=== PATIENT | female | born 1995 | race Caucasian/White ===

== ENCOUNTER 2016-06-12 11:45 | Emergency (ER) | payer OTHER ==
[~2016-06-12 11:45] MED LIST: AMOX875T PO; CEPH500C PO
[2016-06-12 12:07] VITALS: BP 118/77; PULSE 107
[2016-06-12 12:09] VITALS: RESP 18; TEMP 97.7
[2016-06-12] MEDS ORDERED: ACETAMINOPHEN 500 MG CPLT PO ONE (13:15)
--- NOTE | 2016-06-12 13:15 | PD ---
HPI Chief Complaint lower abdominal cramping Date Seen: Jun 12, 2016 (Kehinde Laughlin MD R2) Travel History International Travel<30 Days: No Contact w/Intl Traveler<30Days: No Known Affected Area: No (Kehinde Laughlin MD R2) History of Present Illness HPI Ms. Carmona is a 21 yo G1 at an estimated 21 6/7 weeks (DASHAWN 10/17/2016) who presents with complaint of lower abdominal pain/pressure and dysuria. Patient states that her lower abdominal pain began this morning on awakening and rolling over in bed. She states that it has gotten worse throughout the day. Patient reports that dysuria has been persistent. Patient states that she was recently treated for UTI ~1 week ago; patient was tried on multiple antibiotics but was unable to take them due to her not being able to tolerate pills. Patient states that she took most of an Amoxicillin prescription but did not finish it. Patient states that she feels hot but does not think she has a fever. Patient reports mild nausea but no vomiting. Patient reports normal bowel movements. No headaches, chest pain, or shortness of breath. Patient denies vaginal bleeding or vaginal discharge. Patient reports she is feeling the baby move but less over the past several days. Patient denies known complications on labs or initial ultrasound. Per EMR, US with grossly consistent DASHAWN. Para: 0 : 1 (Kehinde Laughlin MD R2) History Past Medical History Narrative Medical Recent UTI- treated partially with Amoxicillin (Kehinde Laughlin MD R2) Obstetric History Obstetric History G1 (Kehinde Laughlin MD R2) Past Surgical History Narrative Surgical Unspecified renal/ UT surgery at 4 yrs of age (Kehinde Laughlin MD R2) Family History Narrative Family History Breast cancer (Kehinde Laughlin MD R2) Social History Alcohol Use: No Tobacco Use: No Substance Abuse: No (Kehinde Laughlin MD R2) Allergies-Medications (Allergen,Severity, Reaction): Coded Allergies: No Known Allergies (Verified , 05/03/16) Home Meds Active Scripts Nitrofurantoin Monohydrate Macrocrystals (Macrobid)100 Mg [id number] Mg PO BID #14 CAP Ref 0 Prov:Kehinde Laughlin MD R2 06/12/16 Discontinued Reported Medications Cephalexin 500 Mg Ovk206 Mg PO Q8H Ref 0 05/03/16 Discontinued Scripts Amoxicillin 875 Mg Ufr297 Mg PO BID #10 TAB Ref 0 Prov:Elian Siegel MD 05/30/16 Review of Systems General / Constitutional: No: Fever, Chills Eyes: No: Blurred Vision HENT: No: Headaches Cardiovascular: No: Chest Pain or Discomfort Respiratory: No: Short of Breath Gastrointestinal: Nausea (mild) Genitourinary: Dysuria, No: Urgency (Kehinde Laughlin MD R2) Physical Exam Vital Signs Date Time Temp Pulse Resp B/P Pulse Ox O2 Delivery O2 Flow Rate FiO2 06/12/16 12:09 97.7 18 06/12/16 12:07 107 118/77 Narrative GENERAL: Well-nourished, well-developed patient. SKIN: Warm and dry. HEAD: Normocephalic and atraumatic. EYES: No scleral icterus. No injection or drainage. ENT: No nasal drainage noted. Mucous membranes pink. Airway patent. NECK: No thyromegaly or lymphadenopathy CARDIOVASCULAR: Regular rate and rhythm without murmurs. Normal perfusion grossly RESPIRATORY: CTAB, normal rate ABDOMEN/GI: Abdomen soft, non-tender, bowel sounds present, no rebound, no guarding Gravid EXTREMITIES: No cyanosis or edema. NEUROLOGICAL: Awake and alert. Motor and sensory function grossly within normal limits. FHT's: 150 bpm (Kehinde Laughlin MD R2) Data Data Vital Signs Reviewed: Yes Orders Vital Signs (Adult) .ON ADMISSION (06/12/16 12:02) ^ Labor Status (06/12/16 12:02) Urinalysis - C+S If Indicated (06/12/16 12:02) ^ Hydration (06/12/16 12:02) (Kehinde Laughlin MD R2) MDM Medical Record Reviewed: Yes Narrative Course / MDM 21 yo G1 at an estimated 21 6/7 weeks (DASHAWN 10/17/2016) -Dysuria, lower abdominal pain -Recent partially treated UTI (records unavailable) -FHT 150bpm Plan: -Will encourage oral fluids -Tylenol for pain control -Will check Urinalysis Interval history: Urinalysis resultedmoderate occult blood, innumerable RBC, 14 BBC, small leuk esterase, few bacteria, 30 protein Patient reports continued abdominal pain despite Tylenol Updated plan: Discussed with patient that urinalysis results are suggestive of possible urinary tract/bladder infection versus small ureteral stone. Patient counseled to drink abundant fluids at home. We will prescribe Macrobid 7 days to treat suspected urinary tract infection. Patient counseled [facility] with [facility]-3 days and return to OB ED with any worsening symptoms such as fever/chills, worsening pain, etc. Patient was offered Zofran prescription for nausea while taking medications but declined due to potential risk (Kehinde Laughlin MD R2) Diagnosis Diagnosis: Primary Impression: Urinary tract infection Additional Impressions: Abdominal pain affecting Hematuria Disposition: 01 DISCHARGE HOME Condition: Stable Scripts Nitrofurantoin Monohydrate Macrocrystals (Macrobid)100 Mg Jhw661 Mg PO BID #14 CAP Ref 0 Prov:Kehinde Laughlin MD R2 06/12/16 Patient Instructions: General Instructions, Abdominal Pain in (ED), Urinary Tract Infection in (ED) Attestation I have discussed this patients management with resident team and agree with plan. (Rufina Boateng MD) Kehinde Laughlin MD R2 Jun 12, 2016 13:15 Rufina Boateng MD Jun 12, 2016 18:12
[2016-06-12 13:54] LABS: BACTERIA, URINE FEW /hpf; BLOOD, URINE MOD (NEG); GLUCOSE,URINE 70 mg/dL (NEG); KETONE, URINE NEG (NEG); NITRITE,URINE NEG (NEG); SQUAMOUS EPITHELIAL CELL URINE 23 /hpf (0-5); TRANSITIONAL EPI CELLS, URINE <1 /hpf; URINE COLOR YELLOW (YELLW/STRAW)
[2016-06-12 13:55] LABS: COMMENT (UR) CULTURE INDICATED; CULTURE IF INDICATED CULTURE INDICATED
[2016-06-12] MEDS ORDERED: MACR100C2 PO (14:42)
[2016-06-27] MEDS ORDERED: TERC0.4C2 VAGINAL (13:17)
[2016-07-11] MEDS ORDERED: PREN1CHW7 PO (10:49)
[2016-08-08] MEDS ORDERED: PREN1CHW7 PO (09:25)
== END 2016-06-12 15:04 | disposition home or self-care (01) ==
LOC: HOBED 11:45
DX: O23.42 Unspecified infection of urinary tract in pregnancy, second trimester (principal); R31.9 Hematuria, unspecified; R10.30 Lower abdominal pain, unspecified; Z3A.21 21 weeks gestation of pregnancy
CPT/HCPCS: 81001; 87086; 99284

== ENCOUNTER 2016-09-24 19:28 | Emergency (ER) | payer OTHER ==
[~2016-09-24 19:28] MED LIST changes: +AMOX250S2 PO; -AMOX875T PO; -CEPH500C PO; +PREN1CHW7 PO
--- NOTE | 2016-09-24 20:48 | PD ---
HPI Chief Complaint Contractions Date Seen: Sep 24, 2016 Travel History International Travel<30 Days: No Contact w/Intl Traveler<30Days: No Known Affected Area: No History of Present Illness HPI Patient is 21-year-old white female at 36 weeks who [facility] to [facility] She presents clinically contraction pain over the last few hours. And she is jack regularly at this point, heart rate tracing is reactive Para: 0 : 1 History Social History Alcohol Use: No Tobacco Use: No Substance Abuse: No Allergies-Medications (Allergen,Severity, Reaction): Coded Allergies: No Known Allergies (Verified , 09/20/16) Home Meds Active Scripts Amoxicillin Liq 250 Mg/5 Ml [id number] Mg PO TID #15 ML Ref 0 Prov:Elian Siegel MD 09/20/16 Vit W/ Ferric Phospha (Vitafol Gummies 3.33-0.333-34.8 mg)1 Chw Chw3 Tab PO DAILY #90 BOTTLE Ref 11 Prov:Raquel Tadeo 08/08/16 W/O Vit A W/ Fe Carbo Pack (Citranatal Assure Pack)35-1 & 300 Mg Pack Sample #3 Prov:Elian Siegel MD 05/03/16 Review of Systems General / Constitutional: No: Fever, Weight Gain, Chills, Other Eyes: No: Diploplia, Blurred Vision, Visual changes, Pain, Photophobia HENT: No: Headaches, Vertigo, Lightheadedness Cardiovascular: No: Irregular Rhythm, Chest Pain or Discomfort, Palpitations, Tachycardia, Syncope, Varicosities, Edema, Cyanosis Respiratory: No: Cough, Short of Breath, Other Gastrointestinal: Abdominal Pain, No: Nausea, Vomiting, Diarrhea Genitourinary: No: Decreased Urinary Output, Oliguria Musculoskeletal: No: Limited ROM, Weakness, Cramping, Edema, Pain Skin: No Rash, No Itching, No Dryness, No Lumps, No Change in Pigmentation, No Change in Nails, No Alopecia, No Lesions Neurologic: No: Weakness, Dizziness, Syncope, Focal Abnormalities, Coordination Problem, Headache, Slurred Speech, Seizures Psychiatric: No: Depression, Suicidal Ideations, Homicidal Ideation Endocrine: No: Heat Intolerance, Cold Intolerance, Polydipsia, Polyuria, Other Physical Exam Narrative GENERAL: Well-nourished, well-developed patient. SKIN: Warm and dry. HEAD: Normocephalic and atraumatic. EYES: No scleral icterus. No injection or drainage. ENT: No nasal drainage noted. Mucous membranes pink. Airway patent. NECK: Supple, trachea midline. No JVD. CARDIOVASCULAR: Regular rate and rhythm without murmurs, gallops, or rubs. RESPIRATORY: Breath sounds equal bilaterally. No accessory muscle use. BREASTS: Bilateral exam showed no masses , no retractions, no nipple discharge. ABDOMEN/GI: Abdomen soft, non-tender, bowel sounds present, no rebound, no guarding Gravid to [-36] weeks size Fundal Height: [36-] GENITOURINARY: External Genitalia: intact and normal in appearance BUS glands: [-] Cervix: [-closed] Dilatation: [closed-] Effacement: [-thick] Station: [-3] Presentation: [vtx-] Membranes: [intact ] Uterine Contractions: [reg-] FHT's: Category: [-1] Baseline: [133-] Reactive: [yes-] Variability: [-mod] Decels: [none-] EXTREMITIES: No cyanosis or edema. BACK: Nontender without obvious deformity. No CVA tenderness. NEUROLOGICAL: Awake and alert. Motor and sensory grossly within normal limits. Five out of 5 muscle strength in all muscle groups. Normal speech. Data Data Orders Urinalysis showed 3+ blood 2+ protein large leukocyte esterase and sample sent for culture Urinalysis - C+S If Indicated (09/24/16 20:17) MDM Interpretation(s) Patient is 21-year-old white female at 36 weeks presents clinically contractions, she is jack regularly. Cervix is closed and high. Heart rate tracing is reactive and contractions noted on the monitor. Urinalysis done dipstick on the floor year showing large leukocyte esterase 3+ blood 2+ protein---UTI --will give liter of IV fluid 1 dose of gentamicin IV 100 mg and orally Monurol powder in liquid a one-time dose. She is to return for worsening symptoms follow-up with her OB provider Plan False labor UTI and dehydration plan the IV fluid IV gentamicin oral Monurol, bedrest increase oral fluids Tylenol as needed heating pad or hot bath. Follow- up with her OB provider Diagnosis Diagnosis: Primary Impression: False labor before 37 completed weeks of gestation Additional Impression: UTI (urinary tract infection) in in third trimester Disposition: 01 DISCHARGE HOME Condition: Stable Scripts Fosfomycin Packet (Monurol Packet)3 Gm Powderpack3 Gm PO ONCE #1 GM Prov:Pk Youngblood II, MD 09/24/16 Pk Youngblood II, MD Sep 24, 2016 20:48
[2016-09-24] MEDS ORDERED: MONUPAK PO (20:51)
[2016-09-24] MEDS ORDERED: GENTAMICIN INJ 100 MG in SODIUM CHLORIDE 0.9% INJ 100 ML IV ONE (21:00)
[2016-09-24 21:40] LABS: BACTERIA, URINE MANY /hpf; BLOOD, URINE MOD (NEG); COMMENT (UR) CULTURE INDICATED; CULTURE IF INDICATED CULTURE INDICATED; GLUCOSE,URINE NEG (NEG); KETONE, URINE NEG (NEG); MUCUS URINE FEW /lpf (OCC); NITRITE,URINE NEG (NEG); PH, URINE 7.5 (5.0-8.5); SQUAMOUS EPITHELIAL CELL URINE 15 /hpf (0-5); TRANSITIONAL EPI CELLS, URINE 1 /hpf; URINE COLOR YELLOW (YELLW/STRAW)
== END 2016-09-24 20:45 | disposition home or self-care (01) ==
LOC: HOBED 19:28
DX: O47.03 False labor before 37 completed weeks of gestation, third trimester (principal); O23.43 Unspecified infection of urinary tract in pregnancy, third trimester; E86.0 Dehydration; Z3A.36 36 weeks gestation of pregnancy
CPT/HCPCS: 59025; 81001; 87086; 96374; 99284; J1580

== ENCOUNTER 2016-10-17 22:58 | Emergency (ER) | payer OTHER ==
[~2016-10-17 22:58] MED LIST changes: -AMOX250S2 PO
--- NOTE | 2016-10-17 23:31 | PD ---
HPI Chief Complaint contractions/abdominal pain Date Seen: Oct 17, 2016 Travel History International Travel<30 Days: No Contact w/Intl Traveler<30Days: No History of Present Illness HPI Ms. Carmona is a 21 yo G1 patient of [facility] at 40 weeks GA (DASHAWN 10/17/2016 ) who presents with abdominal pain/contractions. Ms. Carmona reports she began having abdominal pain approximately 7 PM this evening; patient states he is stronger than that which she has periods. Patient unsure of intervals between pain, stating that it is predominantly constant nature. Patient does not report any rupture of membranes or vaginal bleeding. Patient states it is felt less movement since onset of pain but is felt normal movement until pain has started. Patient does not report chest pain, shortness of breath, nausea/vomiting, fever, or dysuria. Patient reports increased lower extremity swelling for the past several weeks. Patient reports benign history with exception of some proteinuria but normal blood pressures. Patient reports she is GBS negative. Patient reports normal prior US. : 1 History Past Medical History Medical History: Denies Significant Hx Obstetric History Obstetric History G1 Patient reports some proteinuria during with normal blood pressures Past Surgical History Narrative Surgical Childhood renal surgery at age 31 Surgical History: No Previous Surgery Family History Family History: Negative Social History Alcohol Use: No Tobacco Use: No Substance Abuse: No Allergies-Medications (Allergen,Severity, Reaction): Coded Allergies: No Known Allergies (Verified , 10/10/16) Home Meds Active Scripts Vit W/ Ferric Phospha (Vitafol Gummies 3.33-0.333-34.8 mg)1 Chw Chw3 Tab PO DAILY #90 BOTTLE Ref 11 Prov:Raquel Tadeo 08/08/16 W/O Vit A W/ Fe Carbo Pack (Citranatal Assure Pack)35-1 & 300 Mg Pack Sample #3 Prov:Elian Siegel MD 05/03/16 Review of Systems General / Constitutional: No: Fever, Weight Gain Eyes: No: Blurred Vision HENT: Headaches (chronic, patient describes as migraines) Cardiovascular: No: Chest Pain or Discomfort Respiratory: Short of Breath (with abdominal pain; mild) Gastrointestinal: Abdominal Pain, No: Vomiting Genitourinary: No: Urgency, Dysuria Skin: No Rash Psychiatric: No: Anxiety, Depression Physical Exam HR 107 BP 143/87 RR 18 Narrative GENERAL: Well-nourished, well-developed patient. SKIN: Warm and dry. HEAD: Normocephalic and atraumatic. EYES: No scleral icterus. No injection or drainage. ENT: No nasal drainage noted. Mucous membranes pink. Airway patent. NECK: Supple, trachea midline. No JVD. CARDIOVASCULAR: Regular rate and rhythm without murmurs, gallops, or rubs. RESPIRATORY: Breath sounds equal bilaterally. No accessory muscle use. CTA B ABDOMEN/GI: Abdomen soft, non-tender, bowel sounds present, no rebound, no guarding Gravid EXTREMITIES: Mild bilateral lower extremity edema BACK: Nontender without obvious deformity. No CVA tenderness. NEUROLOGICAL: Awake and alert. Motor and sensory function grossly within normal limits. Five out of 5 muscle strength in all muscle groups. Normal speech. GENITOURINARY: External Genitalia: intact and normal in appearance Cervix: Dilatation: 0 Effacement: 0%, thick Station: -3 Presentation: V Membranes: Intact Uterine Contractions: irritability FHT's: Category: 1 Baseline: 140 Reactive: Y Variability: Mod Decels: None Data Data Vital Signs Reviewed: Yes MDM Medical Record Reviewed: Yes Narrative Course / MDM 21 yo G1 patient of [facility] at 40 weeks GA (DASHAWN 10/17/2016) -Cat 1 rhythm -Cervix closed -Irritability on EFM -GBS- Plan: -We'll monitor for contractions and monitoring Updated plan: Persistent reassuring Cat 1 rhythm without evidence of regular contractions. We 'll plan to discharge patient home with guidance to return to OB ED with worsening pain with contractions, loss of fluid, concern for movement abnormality, or other concerns. Diagnosis Diagnosis: Primary Impression: Normal labor Disposition: 01 DISCHARGE HOME Condition: Stable Patient Instructions: Abdominal Pain in (ED), Movement (ED), Early Labor Signs (ED), General Instructions Kehinde Laughlin MD, R3 Oct 17, 2016 23:31
== END 2016-10-18 00:26 | disposition home or self-care (01) ==
LOC: HOBED 22:58
DX: O62.9 Abnormality of forces of labor, unspecified (principal); R22.43 Localized swelling, mass and lump, lower limb, bilateral; Z3A.40 40 weeks gestation of pregnancy
CPT/HCPCS: 59025

== ENCOUNTER 2016-10-18 15:03 | Inpatient (IN) | payer OTHER ==
[2016-10-18] VITALS (15 sets, daily range): BP systolic 113–146; BP diastolic 69–89; PULSE 86–119; RESP 18; TEMP 97.4–98.7
[~2016-10-18] VITALS: Ht 162.6 cm; Wt 78.5 kg
--- NOTE | 2016-10-18 16:10 | PD ---
HPI Chief Complaint Elevated blood pressure Date Seen: Oct 18, 2016 Time Seen: 15:30 (Randall Aden MD R1) Travel History International Travel<30 Days: No Contact w/Intl Traveler<30Days: No Known Affected Area: No (Randall Aden MD R1) History of Present Illness HPI Patient is a 21-year-old at 40/1 who presented today from her [employer]'s office for hypertension. Patient states that she went to her [employer]'s office for a routine checkup where they noticed she had elevated blood pressure, stated she may have preeclampsia and directed her to come to the ED for induction of labor. Currently complains of minor headache and heartburn as well as some increased ankle swelling. No blurry vision, double vision, chest pain, shortness of breath, change in urinary frequency/color/smell/volume, vaginal discharge/bleeding/abnormal fluids. Patient states that she's had recurrent UTIs during however her urine checked at her provider's office before coming in and she reports it was normal. Para: 0 : 1 Miscarriage: 0 : 0 (Randall Aden MD R1) History Past Medical History Medical History: Denies Significant Hx (Randall Aden MD R1) Past Surgical History Narrative Surgical Left kidney surgery at the age of [age] for "water around kidney." Was not removed (Randall Aden MD R1) Family History Narrative Family History Mother: diabetes mellitus Father: FH hypertension (Randall Aden MD R1) Social History Alcohol Use: No Tobacco Use: No Substance Abuse: No (Randall Aden MD R1) Allergies-Medications (Allergen,Severity, Reaction): Coded Allergies: No Known Allergies (Verified , 10/18/16) Home Meds Active Scripts Nifedipine ER 24 HR (Procardia XL) 30 Mg Tab, 30 MG PO DAILY, #30 TAB 0 Refills Prov:Edilma Casanova MD, R3 10/23/16 Vit W/ Ferric Phospha (Vitafol Gummies 3.33-0.333-34.8 mg) 1 Chw Chw, 3 TAB PO DAILY, #90 BOTTLE 11 Refills Prov:Raquel Tadeo 08/08/16 W/O Vit A W/ Fe Carbo Pack (Citranatal Assure Pack) 35-1 & 300 Mg Pack Prov:Elian Siegel MD 05/03/16 Review of Systems General / Constitutional: Weight Gain, No: Fever, Chills Eyes: No: Diploplia, Blurred Vision, Visual changes, Pain, Photophobia HENT: Headaches, No: Vertigo, Lightheadedness Cardiovascular: No: Irregular Rhythm, Chest Pain or Discomfort, Palpitations, Tachycardia, Syncope Respiratory: No: Cough, Short of Breath, Wheezing Gastrointestinal: No: Nausea, Vomiting, Diarrhea, Abdominal Pain, Hematochezia , Constipation Genitourinary: No: Urgency, Frequency, Dysuria, Nocturia, Hematuria, Decreased Urinary Output, Oliguria Musculoskeletal: Edema, No: Limited ROM, Weakness, Cramping Skin: No Rash, No Itching, No Dryness Neurologic: No: Weakness, Dizziness Psychiatric: No: Anxiety, Depression (Randall Aden MD R1) Physical Exam Narrative GENERAL: Well-nourished, well-developed patient. SKIN: Warm and dry. HEAD: Normocephalic and atraumatic. EYES: No scleral icterus. No injection or drainage. ENT: No nasal drainage noted. Mucous membranes pink. Airway patent. NECK: Supple, trachea midline. No JVD. CARDIOVASCULAR: Regular rate and rhythm without murmurs, gallops, or rubs. RESPIRATORY: Breath sounds equal bilaterally. No accessory muscle use. ABDOMEN/GI: Abdomen soft, non-tender, bowel sounds present, no rebound, no guarding GENITOURINARY: External Genitalia: intact and normal in appearance Dilatation: 0-1 Effacement: 0 Membranes: intact Uterine Contractions: none FHT's: Category: 1 Baseline: 145 Reactive: yes Variability: moderate Decels: none EXTREMITIES: No cyanosis or edema. BACK: Nontender without obvious deformity. No CVA tenderness. NEUROLOGICAL: Awake and alert. Motor and sensory grossly within normal limits. Five out of 5 muscle strength in all muscle groups. Normal speech. (Randall Aden MD R1) [facility] Medical Record Reviewed: Yes Plan Patient is a 21-year-old at 40/1 who presented today from her [employer]'s office for hypertension, 139/82 in office, 143/87 last night. -Monitor for elevated blood pressures -Cytotec for cervical ripening -Induction of labor -Management of expectant delivery d/w Dr. Casanova, Dr. Boateng (Randall Aden MD R1) Scripts Nifedipine ER 24 HR (Procardia XL) 30 Mg Tab 30 MG PO DAILY, #30 TAB 0 Refills Prov: Edilma Casanova MD, R3 10/23/16 Attestation I have seen patient and discussed the care with resident team (Rufina Boateng MD) Randall Aden MD R1 Oct 18, 2016 16:10 Rufina Boateng MD Nov 07, 2016 08:14
[2016-10-18] MEDS ORDERED: LACTATED RINGER'S 1000 ML INJ 1,000 ML IV PRN (16:29)
[2016-10-18] MEDS ORDERED: SODIUM CHLOR 0.9% 1000 ML INJ 1,000 ML OTHER PRN (16:29)
[2016-10-18] MEDS ORDERED: LIDOCAINE HCL 1% 50 ML VIAL I-DERMAL PRN (16:30)
[2016-10-18] MEDS ORDERED: MINERAL OIL 10 ML VIAL TOPICAL PRN (16:30)
[2016-10-18] MEDS ORDERED: OXYTOCIN 30 UNITS-500ML PREMIX 500 ML IV ONE (16:30)
[2016-10-18] MEDS ORDERED: ONDANSETRON HCL 4 MG/2 ML VIAL IV PRN (16:30)
[2016-10-18] MEDS ORDERED: SODIUM CHLORID 0.9% 500 ML INJ 500 ML IV PRN (16:30)
[2016-10-18] MEDS ORDERED: MISOPROSTOL 25 MCG SUPP VAGINAL ONE (16:30)
[2016-10-18] MEDS ORDERED: CITRIC ACID-SODIUM CITRATE LIQ 30 ML UDC PO SCH (16:30)
[2016-10-18] MEDS ORDERED: SODIUM CHLORIDE 0.9% FLUSH 10 ML FLUSH IV FLUSH PRN (16:30)
[2016-10-18] MEDS ORDERED: LIDOCAINE HCL 1% 50 ML VIAL INFIL PRN (16:30)
[2016-10-18] MEDS ORDERED: SODIUM CHLOR 0.9% 1000 ML INJ 1,000 ML IV PRN (16:49)
--- NOTE | 2016-10-18 16:49 | HHI.HP ---
History & Physical H&P HPI HPI Chief Complaint Elevated blood pressure Date Seen: Oct 18, 2016 Time Seen: 15:30 Travel History International Travel<30 Days: No Contact w/Intl Traveler<30Days: No Known Affected Area: No History of Present Illness HPI Patient is a 21-year-old at 40/1 who presented today from her [employer]'s office for hypertension. Patient states that she went to her STATE EPID[employer]'s office for a routine checkup where they noticed she had elevated blood pressure, stated she may have preeclampsia and directed her to come to the ED for induction of labor. Currently complains of minor headache and heartburn as well as some increased ankle swelling. No blurry vision, double vision, chest pain, shortness of breath, change in urinary frequency/color/smell/volume, vaginal discharge/bleeding/abnormal fluids. Patient states that she's had recurrent UTIs during however her urine checked at her provider's office before coming in and she reports it was normal. Para: 0 : 1 Miscarriage: 0 : 0 History (Limited) History Past Medical History Medical History: Denies Significant Hx Past Surgical History Narrative Surgical Left kidney surgery at the age of [age] for "water around kidney." Was not removed Family History Narrative Family History Mother: diabetes mellitus Father: FH hypertension Social History Alcohol Use: No Tobacco Use: No Substance Abuse: No Allergies-Medications Allergies-Medications (Allergen,Severity, Reaction): Coded Allergies: No Known Allergies (Verified , 10/18/16) Home Meds Active Scripts Vit W/ Ferric Phospha (Vitafol Gummies 3.33-0.333-34.8 mg)1 Chw Chw3 Tab PO DAILY #90 BOTTLE Ref 11 Prov:Raquel Tadeo 08/08/16 W/O Vit A W/ Fe Carbo Pack (Citranatal Assure Pack)35-1 & 300 Mg Pack Sample #3 Prov:Elian Siegel MD 05/03/16 ROS Review of Systems General / Constitutional: Weight Gain, No: Fever, Chills Eyes: No: Diploplia, Blurred Vision, Visual changes, Pain, Photophobia HENT: Headaches, No: Vertigo, Lightheadedness Cardiovascular: No: Irregular Rhythm, Chest Pain or Discomfort, Palpitations, Tachycardia, Syncope Respiratory: No: Cough, Short of Breath, Wheezing Gastrointestinal: No: Nausea, Vomiting, Diarrhea, Abdominal Pain, Hematochezia , Constipation Genitourinary: No: Urgency, Frequency, Dysuria, Nocturia, Hematuria, Decreased Urinary Output, Oliguria Musculoskeletal: Edema, No: Limited ROM, Weakness, Cramping Skin: No Rash, No Itching, No Dryness Neurologic: No: Weakness, Dizziness Psychiatric: No: Anxiety, Depression Physical Exam Physical Exam Narrative GENERAL: Well-nourished, well-developed patient. SKIN: Warm and dry. HEAD: Normocephalic and atraumatic. EYES: No scleral icterus. No injection or drainage. ENT: No nasal drainage noted. Mucous membranes pink. Airway patent. NECK: Supple, trachea midline. No JVD. CARDIOVASCULAR: Regular rate and rhythm without murmurs, gallops, or rubs. RESPIRATORY: Breath sounds equal bilaterally. No accessory muscle use. ABDOMEN/GI: Abdomen soft, non-tender, bowel sounds present, no rebound, no guarding GENITOURINARY: External Genitalia: intact and normal in appearance Dilatation: 0-1 Effacement: 0 Membranes: intact Uterine Contractions: none FHT's: Category: 1 Baseline: 145 Reactive: yes Variability: moderate Decels: none EXTREMITIES: No cyanosis or edema. BACK: Nontender without obvious deformity. No CVA tenderness. NEUROLOGICAL: Awake and alert. Motor and sensory grossly within normal limits. Five out of 5 muscle strength in all muscle groups. Normal speech. Data Data [facility] Medical Record Reviewed: Yes Plan Patient is a 21-year-old at 40/1 who presented today from her [employer]'s office for hypertension, 139/82 in office, 143/87 last night. -Monitor for elevated blood pressures -Cytotec for cervical ripening -Induction of labor -Management of expectant delivery Randall Aden MD R1 Oct 18, 2016 16:49
[2016-10-18 17:20] LABS: HEMATOCRIT 32.6 % (35.0-46.0); MEAN CORPUSCULAR HGB CONC 32.9 % (32.0-36.0); PLATELET COUNT 128 TH/MM3 (150-450); RED BLOOD COUNT 3.98 MIL/MM3 (4.00-5.30); RED CELL DISTRIBUTION WIDTH 15.9 % (11.6-17.2); REVIEW FLAG FINAL; WHITE BLOOD COUNT 12.1 TH/MM3 (4.0-11.0)
[2016-10-18 17:42] LABS: ALT (GPT) 19 U/L (9-42); ANION GAP 8 MEQ/L (5-15); AST (GOT) 20 U/L (16-38); BICARBONATE 23.1 MEQ/L (21.0-32.0); BLOOD UREA NITROGEN 8 MG/DL (7-18); CHLORIDE 105 MEQ/L (98-107); GLOMERULAR FILTRATION RATE 120 ML/MIN (>89); POTASSIUM 4.5 MEQ/L (3.5-5.1); SODIUM (NA) 136 MEQ/L (136-145)
[2016-10-18 17:44] LABS: ALKALINE PHOSPHATASE 162 U/L (45-117); TOTAL BILIRUBIN ADULT 0.2 MG/DL (0.2-1.0)
[2016-10-18] MEDS: LACTATED RINGER'S 1000 ML INJ 1,000 ML IV SCH (18:12)
[2016-10-18] MEDS ORDERED: SODIUM CHLORIDE 0.9% FLUSH 10 ML FLUSH IV FLUSH SCH (21:00)
[2016-10-18 21:32] LABS: BACTERIA, URINE RARE /hpf; BLOOD, URINE NEG (NEG); COMMENT (UR) CULTURE INDICATED; CULTURE IF INDICATED CULTURE INDICATED; GLUCOSE,URINE NEG (NEG); KETONE, URINE NEG (NEG); MUCUS URINE FEW /lpf (OCC); NITRITE,URINE NEG (NEG); PH, URINE 7.5 (5.0-8.5); SQUAMOUS EPITHELIAL CELL URINE 1 /hpf (0-5); URINE COLOR YELLOW (YELLW/STRAW)
--- NOTE | 2016-10-18 23:29 | PD.LABORPN ---
Subjective Subjective Cervical check at 2315. Sitting, resting in bed with no concerns Objective Vital Signs Vital Signs Date Time Temp Pulse Resp B/P Pulse Ox O2 Delivery O2 Flow Rate FiO2 10/18/16 21:51 86 144/89 10/18/16 21:50 97.4 18 10/18/16 20:00 97.8 10/18/16 20:00 97 10/18/16 20:00 144/82 10/18/16 20:00 18 10/18/16 18:20 101 132/84 10/18/16 18:19 18 10/18/16 17:27 98 146/89 10/18/16 17:27 18 10/18/16 17:27 98.7 10/18/16 17:15 94 123/80 10/18/16 17:00 94 121/77 10/18/16 16:45 95 113/74 10/18/16 16:30 119 126/78 10/18/16 16:25 116 123/86 10/18/16 16:12 112 130/79 10/18/16 16:00 101 128/85 10/18/16 15:45 104 123/82 10/18/16 15:30 102 139/69 Objective Pelvic Exam: Cervix: posterior Dilatation: 1 Effacement: 0 Station: -2 Presentation: vertex Membranes: intact Uterine Contractions: every 5-10 minutes FHT's: Category: 1 Baseline: 125 Reactive: yes Variability: moderate Decels: none Assessment/Plan Assessment and Plan 21 yo at 40 weeks gestation here for induction of labor No change from cervical check 4 hours prior Cervix posterior, 1cm dilation, 0% effacement Category 1 tracing Giving 2nd dose of cytotec Repeat cervical check if contractions become more intense with pressure or after 6 hours Jamaal Cao MD R1 Oct 18, 2016 23:29
[2016-10-18] MEDS: MISOPROSTOL 25 MCG SUPP VAGINAL PRN (23:30)
[2016-10-19] VITALS (33 sets, daily range): BP systolic 121–156; BP diastolic 70–98; PULSE 18–123; RESP 18–20; TEMP 97.3–98.9
[2016-10-19] MEDS: LACTATED RINGER'S 1000 ML INJ 1,000 ML IV SCH ×3 (05:19→16:29)
[2016-10-19] MEDS: MISOPROSTOL 25 MCG SUPP VAGINAL PRN (05:20)
[2016-10-19] MEDS ORDERED: OXYTOCIN 30 UNITS-500ML PREMIX 500 ML IV SCH (09:30)
--- NOTE | 2016-10-19 11:22 | PD.LABORPN ---
Subjective Subjective Patient is resting in bed comfortably. Objective Vital Signs Vital Signs Date Time Temp Pulse Resp B/P Pulse Ox O2 Delivery O2 Flow Rate FiO2 10/19/16 10:07 20 10/19/16 10:06 96 152/94 10/19/16 08:51 20 10/19/16 08:50 100 121/88 10/19/16 07:37 98.9 20 10/19/16 07:35 86 135/94 10/19/16 05:58 18 10/19/16 05:57 98.1 101 134/75 10/19/16 04:00 98.3 18 10/19/16 04:00 79 10/19/16 04:00 141/86 Objective Pelvic Exam: Cervix: posterior Dilatation: 1 Effacement: 50 Station: -3 Presentation: vertex Membranes: intact Uterine Contractions: irregular FHT's: Category: I Baseline: 130 Reactive: + Variability: moderate Decels: none Assessment/Plan Assessment and Plan 21 year old at 40-2/7 weeks gestation. 1. IUP- Category I tracing, reassuring. 2. IOL for PIH- Cytotec x 3 overnight, will start Pitocin 2-2-30 today 3. PIH- BP 120-150/70-90's, continue to monitor. Labetalol 20mg IV Q20min PRN BP >160/110 4. GBS negative 5. Anticipate vaginal delivery dw Dr. Youngblood and Dr. Aden R1 Edilma Casanova MD, R3 Oct 19, 2016 11:22
[2016-10-19] MEDS ORDERED: SODIUM CHLORIDE 0.9% FLUSH 10 ML FLUSH IV FLUSH PRN (17:15)
--- NOTE | 2016-10-19 17:19 | PD.LABORPN ---
Subjective Subjective Patient is starting to feel contractions, otherwise resting comfortably in bed. Objective Vital Signs Vital Signs Date Time Temp Pulse Resp B/P Pulse Ox O2 Delivery O2 Flow Rate FiO2 10/19/16 15:37 98.9 20 10/19/16 15:30 66 130/84 10/19/16 15:00 78 131/92 10/19/16 14:30 83 141/90 10/19/16 13:45 20 10/19/16 13:30 97 146/98 10/19/16 13:00 80 155/91 10/19/16 12:32 83 20 156/85 10/19/16 12:30 94 10/19/16 12:00 92 152/91 10/19/16 11:36 96 144/77 10/19/16 11:35 98.9 20 10/19/16 10:07 20 10/19/16 10:06 96 152/94 Objective Pelvic Exam: Cervix: posterior Dilatation: 1 Effacement: 30 Station: -2 Presentation: vertex Membranes: intact Uterine Contractions: q4-5min FHT's: Category: I Baseline: 135 Reactive: + Variability: moderate Decels: none Assessment/Plan Assessment and Plan 21 year old at 40-2/7 weeks gestation. 1. IUP- Category I tracing, reassuring. 2. IOL for PIH- Cytotec x 3 overnight, s/p Pitocin 2-2-30 today. No cervical change noted. Will DC Pitocin. Cervidil overnight for cervical ripening. Plan for resumption of Pitocin in AM. 3. PIH- BP 120-150/70-90's, continue to monitor. Labetalol 20mg IV Q20min PRN BP >160/110 4. GBS negative 5. Anticipate vaginal delivery dw Dr. Youngblood and Dr. Aden R1 Edilma Casanova MD, R3 Oct 19, 2016 17:19
[2016-10-19] MEDS ORDERED: DINOPROSTONE 10 MG VAG INSERT VAGINAL ONE (20:00)
[2016-10-19] MEDS: SODIUM CHLORIDE 0.9% FLUSH 10 ML FLUSH IV FLUSH SCH (20:06)
[2016-10-19] MEDS ORDERED: ZOLPIDEM TARTRATE 5 MG TAB PO PRN (21:00)
[2016-10-20] VITALS (87 sets, daily range): BP systolic 104–148; BP diastolic 62–103; PULSE 73–212; RESP 16–18; TEMP 96.6–99.1
[2016-10-20] MEDS: LACTATED RINGER'S 1000 ML INJ 1,000 ML IV SCH ×2 (02:26→14:53)
[2016-10-20] MEDS: SODIUM CHLORIDE 0.9% FLUSH 10 ML FLUSH IV FLUSH SCH (09:00)
--- NOTE | 2016-10-20 10:26 | PD.LABORPN ---
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 Patient has no complaints, status post IUPC and scalp electrode placement this morning. She is not complaining of any hypertensive symptoms. She got IV fentanyl and is interested in epidural during this labor Objective Vital Signs Vital Signs Date Time Temp Pulse Resp B/P Pulse Ox O2 Delivery O2 Flow Rate FiO2 10/20/16 07:19 113 125/89 10/20/16 07:15 18 10/20/16 05:56 18 10/20/16 05:55 73 131/81 10/20/16 05:55 96.6 10/20/16 03:53 79 110/74 10/20/16 03:52 97.9 18 Objective Pelvic Exam: Cervix:1/0/-2 Presentation: Vertex Membranes: AROM at 0915 Uterine Contractions: every 4 minutes FHT's: Category:1 Baseline: 130s Reactive: 160 Variability: mod Decels: Absent Assessment/Plan Assessment and Plan 21-year-old at 40 and 3/7 weeks gestation who is noted to have PIH. She is admitted for induction. She is GBS negative. Cytotec 3, Pitocin, Cervidil already placed this hospital stay. Intrauterine : Category 1 tracing Patient desires vaginal delivery AROM at 0915 Will desire Epidural for pain CBC showing mild anemia. H/H 10.7/32.6. U/A within normal limits IV fluids Monitor heart tones Routine care GBS negative -induced hypertension: BPs currently 110s to 130s/80s Rule out preeclampsia: Notable only for mild anemia, platelets within normal limits. CMP unremarkable. Labetalol 20 mg IV when necessary ordered, not requiring Would start magnesium per protocol if patient blood pressures become more elevated/symptomatic If the strip is not reassuring, or if she develops symptoms suggesting severe preeclampsia, or other unforeseen difficulties, it may be necessary to proceed with a delivery Patient understands and agrees. All questions were answered. Blaire Collado Dr., MD R2 Oct 20, 2016 10:26
--- NOTE | 2016-10-20 12:15 | PD.LABORPN ---
Subjective Subjective Pt feeling contractions. Objective Vital Signs Vital Signs Date Time Temp Pulse Resp B/P Pulse Ox O2 Delivery O2 Flow Rate FiO2 10/20/16 10:46 98 130/89 10/20/16 10:45 16 10/20/16 10:45 98.5 10/20/16 07:19 113 125/89 10/20/16 07:15 18 10/20/16 05:56 18 10/20/16 05:55 73 131/81 10/20/16 05:55 96.6 FHR Cat [address], contractions Q 4 minutes Cervix dilated 2cm 80% effaced -1 station. Objective Pelvic Exam: Cervix: [-] Dilatation: [-] Effacement: [-] Station: [-] Presentation: [-] Membranes: [intact or ruptured] Uterine Contractions: [-] FHT's: Category: [Cat 1] Baseline: [130s] Reactive: [+] Variability: [good] Decels: [none] Assessment/Plan Assessment and Plan 21 yo post-term IOL Expectant Epidural if needed Damián Salgado MD Oct 20, 2016 12:15
[2016-10-20] MEDS ORDERED: OXYTOCIN 30 UNITS-500ML PREMIX 500 ML IV SCH (14:45)
--- NOTE | 2016-10-20 14:47 | PD.LABORPN ---
Subjective Subjective Patient feeling uncomfortable during contractions, having back pain. IV fentanyl helping some. No headaches, blurry vision, chest pain, shortness of breath. Objective Vital Signs Vital Signs Date Time Temp Pulse Resp B/P Pulse Ox O2 Delivery O2 Flow Rate FiO2 10/20/16 13:08 87 142/95 10/20/16 10:46 98 130/89 10/20/16 10:45 16 10/20/16 10:45 98.5 10/20/16 07:19 113 125/89 10/20/16 07:15 18 Objective Pelvic Exam: Cervix: 2-3/70/-1 Presentation: vertex Membranes: AROM @ 0915 Uterine Contractions: every 2-4 min FHT's: Category: 1 Baseline: 130s Reactive: 150s Variability: mod Decels: absent Assessment/Plan Assessment and Plan 21-year-old at 40 and 3/7 weeks gestation who is noted to have PIH. She is admitted for induction. She is GBS negative. Some cervical change noted. Will start Pitocin at 03/04/29 Intrauterine : Category 1 tracing Patient desires vaginal delivery AROM at 0915 Will desire Epidural for pain CBC showing mild anemia. H/H 10.7/32.6. U/A within normal limits IV fluids Monitor heart tones Routine care GBS negative -induced hypertension: BPs currently 110s to 130s/80s Rule out preeclampsia: Notable only for mild anemia, platelets within normal limits. CMP unremarkable. Labetalol 20 mg IV when necessary ordered, not requiring Would start magnesium per protocol if patient blood pressures become more elevated/symptomatic If the strip is not reassuring, or if she develops symptoms suggesting severe preeclampsia, or other unforeseen difficulties, it may be necessary to proceed with a delivery Patient understands and agrees. All questions were answered. TARAW Blaire Driscoll MD R2 Oct 20, 2016 14:47
[2016-10-20] MEDS ORDERED: fentaNYL 2MCG-BUPIV 0.125% INJ 100 ML ONE (17:54)
[2016-10-20] MEDS ORDERED: ePHEDrine/NS 25 MG/5 ML SYR ONE (17:54)
--- NOTE | 2016-10-20 18:21 | PD.LABORPN ---
Subjective Subjective Patient uncomfortable, ready for epidural Objective Vital Signs Vital Signs Date Time Temp Pulse Resp B/P Pulse Ox O2 Delivery O2 Flow Rate FiO2 10/20/16 17:30 108 127/70 10/20/16 17:00 112 127/78 10/20/16 16:30 96 143/94 10/20/16 16:26 18 10/20/16 16:00 88 133/89 10/20/16 15:30 105 132/92 10/20/16 15:30 98.1 10/20/16 15:26 96 135/91 10/20/16 13:08 87 142/95 10/20/16 10:46 98 130/89 10/20/16 10:45 16 10/20/16 10:45 98.5 Objective Pelvic Exam: Cervix: 5/70/-1 Presentation: vertex Membranes: AROM @ 0915 Uterine Contractions: every 2-4 min FHT's: Category: 1 Baseline: 130s Reactive: 150s Variability: mod Decels: absent Assessment/Plan Assessment and Plan 21-year-old at 40 and 3/7 weeks gestation who is noted to have PIH. She is admitted for induction. She is GBS negative. Making cervical change with low dose Pitocin. Intrauterine : Category 1 tracing Cervix 570/-1 CTX q2-4, Mvu adequate Expect vaginal delivery AROM at 0915 Will desire Epidural for pain CBC showing mild anemia. H/H 10.7/32.6. U/A within normal limits IV fluids Monitor heart tones Routine care Augmentation: Pitocin at 03/04/29, currently at 5, continue per protocol Stop if intolerance or tachysystole GBS negative -induced hypertension: BPs currently 120s to 140s/80s Rule out preeclampsia: Notable only for mild anemia, platelets within normal limits. CMP unremarkable. Labetalol 20 mg IV when necessary ordered, not requiring Would start magnesium per protocol if patient blood pressures become more elevated/symptomatic If the strip is not reassuring, or if she develops symptoms suggesting severe preeclampsia, or other unforeseen difficulties, it may be necessary to proceed with a delivery Patient understands and agrees. All questions were answered. Blaire Obrien Dr., MD R2 Oct 20, 2016 18:21
[2016-10-20] MEDS ORDERED: fentaNYL 2MCG-BUPIV 0.125% 100 ML EPIDURAL SCH (20:00)
[2016-10-20] MEDS ORDERED: DO NOT ADMINISTER ANTICOAGULANTS PRN (20:00)
[2016-10-20] MEDS ORDERED: ePHEDrine/NS 25 MG/5 ML SYR IV PRN (20:00)
[2016-10-20] MEDS ORDERED: NO SYSTEM NARCOTICS PRN (20:00)
[2016-10-20] MEDS ORDERED: MISOPROSTOL 200 MCG TAB ONE (21:15)
[2016-10-20] MEDS ORDERED: METHYLERGONOVINE MALEATE 0.2 MG/ML VIAL ONE (21:16)
--- NOTE | 2016-10-20 21:22 | PD.LABORPN ---
Subjective Subjective Patient comfortable after epidural. She did vomit shortly after it was placed but feels better now. On left lateral positioning with peanut ball. Objective Vital Signs Vital Signs Date Time Temp Pulse Resp B/P Pulse Ox O2 Delivery O2 Flow Rate FiO2 10/20/16 21:03 18 10/20/16 21:00 112 131/81 10/20/16 20:55 100 135/85 10/20/16 20:50 97 124/79 10/20/16 20:45 101 130/77 10/20/16 20:43 18 10/20/16 20:40 106 132/81 10/20/16 20:35 121 120/65 10/20/16 20:30 111 113/73 10/20/16 20:30 18 10/20/16 20:25 106 114/73 10/20/16 20:20 105 115/76 10/20/16 20:15 127 112/66 10/20/16 20:10 117 121/73 10/20/16 20:05 122 105/62 10/20/16 20:00 110 107/66 10/20/16 19:58 18 10/20/16 19:56 212 109/74 10/20/16 19:50 95 121/77 10/20/16 19:45 95 117/79 10/20/16 19:40 123 123/80 10/20/16 19:35 97 126/82 10/20/16 19:30 112 128/82 10/20/16 19:25 110 133/87 10/20/16 19:23 99.0 18 10/20/16 19:20 139 125/72 10/20/16 19:15 145 123/79 10/20/16 19:10 121/95 10/20/16 19:05 140 124/85 10/20/16 19:00 126 137/90 10/20/16 18:55 204 145/85 10/20/16 18:50 165 136/103 10/20/16 18:45 127 120/68 10/20/16 18:40 136 17 18:40 130 119/88 10/20/16 18:35 148 10/20/16 18:35 129 132/82 10/20/16 18:30 134 140/87 10/20/16 18:30 124 10/20/16 18:25 131 140/83 10/20/16 18:25 122 10/20/16 18:20 136 132/87 10/20/16 18:20 141 10/20/16 18:15 134 143/82 10/20/16 18:15 139 10/20/16 18:10 136 140/93 10/20/16 18:10 127 10/20/16 18:08 135 139/90 10/20/16 18:05 129 10/20/16 18:00 135 114/87 10/20/16 17:30 108 127/70 10/20/16 17:00 112 127/78 10/20/16 16:30 96 143/94 10/20/16 16:26 18 10/20/16 16:00 88 133/89 10/20/16 15:30 105 132/92 10/20/16 15:30 98.1 10/20/16 15:26 96 135/91 Objective Pelvic Exam: Cervix: 7cm/80%/0 Presentation: vertex Membranes: AROM Uterine Contractions: q2-4 min FHT's: Category: 1 Baseline: 140s Reactive: 160 Variability: mod Decels: early Assessment/Plan Assessment and Plan 21-year-old at 40 and 3/7 weeks gestation who is noted to have PIH. She was admitted for induction. She is GBS negative. Making cervical change. Now with epidural Intrauterine : Category 1 tracing Cervix 5/70/-1 CTX q2-4, MVU adequate Expect vaginal delivery AROM at 0915 Will desire Epidural for pain CBC showing mild anemia. H/H 10.7/32.6 U/A within normal limits IV fluids Monitor heart tones Routine care Augmentation: Pitocin at 03/04/29, currently at 11, continue per protocol Stop if intolerance or tachysystole GBS negative -induced hypertension: BPs currently 120s to 140s/80s Rule out preeclampsia: Notable only for mild anemia, platelets within normal limits. CMP unremarkable. Labetalol 20 mg IV when necessary ordered, not requiring Would start magnesium per protocol if patient blood pressures become more elevated/symptomatic If the strip is not reassuring, or if she develops symptoms suggesting severe preeclampsia, or other unforeseen difficulties, it may be necessary to proceed with a delivery Patient understands and agrees. All questions were answered. Blaire Blancas MD R2 Oct 20, 2016:22
--- NOTE | 2016-10-20 22:32 | PD.LABORPN ---
Subjective Subjective More comfortable since epidural Objective Vital Signs Vital Signs Date Time Temp Pulse Resp B/P Pulse Ox O2 Delivery O2 Flow Rate FiO2 10/20/16 22:21 108 143/85 10/20/16 22:15 97 130/84 10/20/16 22:10 130 117/86 10/20/16 22:05 117 105/66 10/20/16 22:01 18 10/20/16 22:00 122 104/81 10/20/16 21:55 104 139/86 10/20/16 21:50 118 132/87 10/20/16 21:45 109 10/20/16 21:45 130/81 10/20/16 21:40 123 125/71 10/20/16 21:35 105 124/81 10/20/16 21:32 18 10/20/16 21:30 92 121/78 10/20/16 21:30 98.6 10/20/16 21:25 89 10/20/16 21:25 121/76 10/20/16 21:20 128/76 10/20/16 21:20 96 10/20/16 21:15 90 125/79 10/20/16 21:10 87 127/81 10/20/16 21:05 103 131/77 10/20/16 21:03 18 10/20/16 21:00 112 131/81 10/20/16 20:55 100 135/85 10/20/16 20:50 97 124/79 10/20/16 20:45 101 130/77 10/20/16 20:43 18 10/20/16 20:40 106 132/81 10/20/16 20:35 121 120/65 10/20/16 20:30 111 113/73 10/20/16 20:30 18 10/20/16 20:25 106 114/73 10/20/16 20:20 105 115/76 10/20/16 20:15 127 112/66 10/20/16 20:10 117 121/73 10/20/16 20:05 122 105/62 10/20/16 20:00 110 107/66 10/20/16 19:58 18 10/20/16 19:56 212 109/74 10/20/16 19:50 95 121/77 10/20/16 19:45 95 117/79 10/20/16 19:40 123 123/80 17 19:35 97 126/82 17 19:30 112 128/82 17 19:25 110 133/87 17 19:23 99.0 18 17 19:20 139 125/72 17 19:15 145 123/79 17 19:10 121/95 17 19:05 140 124/85 10/20/16 19:00 126 137/90 17 18:55 204 145/85 10/20/16 18:50 165 136/103 17 18:45 127 120/68 10/20/16 18:40 136 17 18:40 130 119/88 17 18:35 148 17 18:35 129 132/82 10/20/16 18:30 134 140/87 17 18:30 124 10/20/16 18:25 131 140/83 17 18:25 122 10/20/16 18:20 136 132/87 17 18:20 141 17 18:15 134 143/82 17 18:15 139 17 18:10 136 140/93 17 18:10 127 17 18:08 135 139/90 17 18:05 129 10/20/16 18:00 135 114/87 17 17:30 108 127/70 17 17:00 112 127/78 17 16:30 96 143/94 17 16:26 18 17 16:00 88 133/89 10/20/17 15:30 105 132/92 17 15:30 98.1 17 15:26 96 135/91 Objective Pelvic Exam: Cervix: [soft-] Dilatation: [7cm] Effacement: [80%] Station: [0] Presentation: [vertex, 2+ caput Membranes: [ruptured] Uterine Contractions: [3-4-] Pitocin at 10mu/min FHT's: Category: [1] Baseline: [120] Reactive: [-] Variability: [mod] Decels: [variables resolved] Assessment/Plan Assessment and Plan Continue Pitocin per protocol Recheck in 2 hours Damián Salgado MD Oct 20, 2016 22:32
[2016-10-21] VITALS (16 sets, daily range): BP systolic 115–138; BP diastolic 63–91; PULSE 93–132; RESP 16–18; TEMP 98.1–99.6; O2SAT 99
[2016-10-21] MEDS ORDERED: SODIUM CHLORIDE 0.9% FLUSH 10 ML FLUSH IV FLUSH PRN (01:45)
[2016-10-21] MEDS ORDERED: OXYTOCIN 30 UNITS-500ML PREMIX 500 ML IV SCH (01:45)
[2016-10-21] MEDS ORDERED: WITCH HAZEL 50%/GLYCERIN 12.5% 40 PAD JAR TOPICAL PRN (01:45)
[2016-10-21] MEDS ORDERED: ZOLPIDEM TARTRATE 5 MG TAB PO PRN (01:45)
[2016-10-21] MEDS ORDERED: ACETAMINOPHEN 325 MG TAB PO PRN (01:45)
[2016-10-21] MEDS ORDERED: BENZOCAINE 20% TOPICAL SPRAY 60 ML CAN TOPICAL PRN (01:45)
[2016-10-21] MEDS ORDERED: oxyCODONE/ACETAMINOPHEN 5 MG/325 MG TAB PO PRN ×2 (01:45)
[2016-10-21] MEDS ORDERED: ONDANSETRON ODT 4 MG TAB PO PRN (01:45)
[2016-10-21] MEDS ORDERED: ALUMINUM/MAGNESIUM/SIMETH 30 ML CUP PO PRN (01:45)
--- NOTE | 2016-10-21 01:52 | PD.OB.DELI ---
Delivery Date: Oct 21, 2016 Anesthesia: Epidural, Lidocaine local to perineum Episiotomy: None Vaginal Delivery: Normal, Spontaneous Presentation: Occiput anterior, Compound (left hand) Nuchal Cord: None Delayed cord clamping (45 sec): No : Male One Minute : 9 Five Minute : 9 Weight: 7lb 13oz Placenta: Spontaneous delivery, Intact, 3 vessel cord Laceration: Vaginal laceration, Perineal laceration, 1 deg Repair: Vicryl interrupted, Vicryl running Estimated blood loss: 300 Additional Information Patient is a 21 female who delivered by normal spontaneous vaginal delivery of live male intact, position FAIZAN over intact perineum with epidural anesthesia. Compound presentation with left hand. No nuchal cord. Cord was cut and handed over to nursery staff who suctioned infant on mother's abdomen. Spontaneous delivery of placenta with 3-vessel cord within 10 minutes. Laceration of 1st degree bilateral periurethral, vaginal, perineal locations repaired using 3-0 Vicryl interrupted and running. Estimated blood loss 300cc. Infant and mother doing well. Attending Dr. Salgado present for initial second stage and third stage of delivery. Delivery of performed by Resident Dr. Blaire Blancas. Placenta delivered by Dr. Salgado. Repair performed by Dr. Salgado. Resident Dr. Centeno was present and assisted. Blaire Blancas MD R2 Oct 21, 2016 01:52
[2016-10-21] MEDS: ACETAMINOPHEN 325 MG TAB PO PRN ×2 (02:36→19:58)
[2016-10-21] MEDS: IBUPROFEN 600 MG TAB PO PRN ×3 (03:35→17:21)
--- NOTE | 2016-10-21 07:22 | HHI.OB ---
Subjective Post Day: 0 Remarks day # 0. AFVSS overnight but is feeling warm. She denies fevers or chills. Decreased lochia. Denies dysuria. No breast tenderness. She is feeding the baby via breast exclusively. Appetite good. No nausea or vomiting. Ambulating well. Denies calf pain or shortness of breath. Otherwise, she is doing well this morning and has no other concerns. Objective Vitals/I&O Vital Signs Date Time Temp Pulse Resp B/P Pulse Ox O2 Delivery O2 Flow Rate FiO2 10/21/16 05:00 98.1 96 16 133/82 10/21/16 04:00 18 10/21/16 03:27 99.3 10/21/16 03:27 18 10/21/16 03:19 118 117/63 10/21/16 03:15 18 10/21/16 02:54 18 10/21/16 02:31 18 10/21/16 02:31 117 115/65 10/21/16 02:31 99.6 99 10/21/16 02:30 18 10/21/16 02:09 18 10/21/16 01:47 99.4 99 10/21/16 01:47 18 10/21/16 01:46 116 138/84 10/21/16 01:22 132 123/91 10/21/16 01:08 128 135/90 10/20/16 23:05 109 143/91 10/20/16 23:03 99.1 10/20/16 23:03 18 10/20/16 23:00 94 135/84 10/20/16 22:55 96 125/83 10/20/16 22:50 96 132/83 10/20/16 22:45 92 131/80 10/20/16 22:40 93 123/80 10/20/16 22:35 93 134/86 10/20/16 22:31 18 10/20/16 22:30 105 135/85 10/20/16 22:26 117 148/89 10/20/16 22:21 108 143/85 10/20/16 22:15 97 130/84 10/20/16 22:10 130 117/86 10/20/16 22:05 117 105/66 10/20/16 22:01 18 10/20/16 22:00 122 104/81 17 21:55 104 139/86 17 21:50 118 132/87 17 21:45 109 17 21:45 130/81 17 21:40 123 125/71 17 21:35 105 124/81 17 21:32 18 17 21:30 92 121/78 17 21:30 98.6 17 21:25 89 17 21:25 121/76 17 21:20 128/76 17 21:20 96 10/20/16 21:15 90 125/79 10/20/16 21:10 87 127/81 10/20/16 21:05 103 131/77 17 21:03 18 10/20/16 21:00 112 131/81 17 20:55 100 135/85 17 20:50 97 124/79 17 20:45 101 130/77 17 20:43 18 17 20:40 106 132/81 17 20:35 121 120/65 17 20:30 111 113/73 17 20:30 18 17 20:25 106 114/73 17 20:20 105 115/76 17 20:15 127 112/66 17 20:10 117 121/73 17 20:05 122 105/62 17 20:00 110 107/66 17 19:58 18 17 19:56 212 109/74 17 19:50 95 121/77 17 19:45 95 117/79 17 19:40 123 123/80 17 19:35 97 126/82 17 19:30 112 128/82 17 19:25 110 133/87 10/20/17 19:23 99.0 18 17 19:20 139 125/72 17 19:15 145 123/79 17 19:10 121/95 10/20/16 19:05 140 124/85 10/20/16 19:00 126 137/90 10/20/16 18:55 204 145/85 10/20/16 18:50 165 136/103 10/20/16 18:45 127 120/68 10/20/16 18:40 136 10/20/16 18:40 130 119/88 10/20/16 18:35 148 10/20/16 18:35 129 132/82 10/20/16 18:30 134 140/87 10/20/16 18:30 124 10/20/16 18:25 131 140/83 10/20/16 18:25 122 10/20/16 18:20 136 132/87 10/20/16 18:20 141 10/20/16 18:15 134 143/82 10/20/16 18:15 139 10/20/16 18:10 136 140/93 10/20/16 18:10 127 10/20/16 18:08 135 139/90 10/20/16 18:05 129 10/20/16 18:00 135 114/87 10/20/16 17:30 108 127/70 10/20/16 17:00 112 127/78 10/20/16 16:30 96 143/94 10/20/16 16:26 18 10/20/16 16:00 88 133/89 10/20/16 15:30 105 132/92 10/20/16 15:30 98.1 10/20/16 15:26 96 135/91 10/20/16 13:08 87 142/95 10/20/16 10:46 98 130/89 10/20/16 10:45 16 10/20/16 10:45 98.5 10/20/16 07:19 113 125/89 Objective Remarks GENERAL: Well-nourished, well-developed female in no apparent distress. CARDIOVASCULAR: Regular rate and rhythm without murmurs, gallops, or rubs. RESPIRATORY: Breath sounds equal bilaterally. No accessory muscle use. ABDOMEN/GI: Abdomen soft, non-tender. Fundus: Firm, non-tender at umbilicus. GENITOURINARY: Light to moderate bleeding. EXTREMITIES: No cyanosis or edema, non-tender, without signs of DVT. Medications and IVs Current Medications Medications (Trade) Dose Ordered Sig/Christa Route Start Time Stop Time Status Last Admin (Tylenol) 650 mg Q4H PRN PO 10/19/16 13:00 10/21/16 02:36 Zolpidem Tartrate 5 mg 5 mg HS PRN PO 10/19/16 21:00 (Pitocin 30 Units-NS 500 ml Premix) 500 ml @ 0 mls/hr TITRATE IV 10/20/16 14:45 10/20/16 14:52 Miscellaneous Information No systemic narcotics to be given except... UNSCH PRN .XX 10/20/16 20:00 10/21/16 19:59 Miscellaneous Information DO NOT ADMINISTER ANY ANTICOAGUL... UNSCH PRN .XX 10/20/16 20:00 10/21/16 19:59 (fentaNYL 2MCG-BUPIV 0.125% INJ) 100 ml @ 0 mls/hr TITRATE EPIDURAL 10/20/16 20:00 (ePHEDrine/NS 25 MG/5 ML SYR) 10 mg UNSCH PRN IV 10/20/16 20:00 10/21/16 19:59 (NS Flush) 2 ml BID IV FLUSH 10/21/16 09:00 (NS Flush) 2 ml UNSCH PRN IV FLUSH 10/21/16 01:45 (Tylenol) 650 mg Q4H PRN PO 10/21/16 01:45 (Motrin) 600 mg Q6H PRN PO 10/21/16 01:45 10/21/16 03:35 (Percocet 5-325 Mg) 1 tab Q4H PRN PO 10/21/16 01:45 10/21/16 03:35 (Percocet 5-325 Mg) 2 tab Q4H PRN PO 10/21/16 01:45 (Americaine 20% Top Spr) 1 spray Q4H PRN TOPICAL 10/21/16 01:45 (Tucks Pads) 1 applic QID PRN TOPICAL 10/21/16 01:45 (Taina-Colace) 2 tab Q12H PRN PO 10/21/16 01:45 (Ambien) 5 mg HS PRN PO 10/21/16 01:45 (M-M-R Ii Inj) 0.5 ml ONCE ONCE SQ 10/21/16 16:00 10/21/16 16:01 (Boostrix Inj) 0.5 ml ONCE ONCE IM 10/21/16 16:00 10/21/16 16:01 (Mag-Al Plus Susp Liq) 15 ml Q8H PRN PO 10/21/16 01:45 (Zofran Odt) 4 mg Q6H PRN PO 10/21/16 01:45 Assessment/Plan Problem List: (1) Vaginal delivery (2) induced hypertension, delivered, current hospitalization Assessment and Plan 21 y/o female, now who is PPD# 0 s/p complicated by compound presentation Post- Care: -Continue routine care. -Percocet and Motrin PRN pain. -Encouraged OOB. Advised pelvic rest for 6 wks. -Re: ctrl, she would like to avoid it given previous side effects. Non- hormonal options were discussed in detail with patient -Anticipate discharge 1-2 days. -induced hypertension: BPs currently 110s to 130s SBP Ruled out preeclampsia: Notable only for mild anemia, platelets within normal limits. CMP unremarkable. Not requiring antihypertensives Would start magnesium per protocol if patient blood pressures become more elevated or she becomes symptomatic DW Blaire Driscoll MD R2 Oct 21, 2016 07:22
[2016-10-21] MEDS ORDERED: SODIUM CHLORIDE 0.9% FLUSH 10 ML FLUSH IV FLUSH SCH (09:00)
[2016-10-21] MEDS ORDERED: MEASLES, MUMPS, RUBELLA VACCINE 0.5 ML VIAL SQ ONE (16:00)
[2016-10-21] MEDS ORDERED: DIPHTH/TETANUS/ACEL PERTUSSIS (BOOSTER) 0.5 ML VIAL/PFS IM ONE (16:00)
[2016-10-22] MEDS: IBUPROFEN 600 MG TAB PO PRN ×4 (00:36→20:28)
[2016-10-22] MEDS: ACETAMINOPHEN 325 MG TAB PO PRN ×4 (00:36→20:28)
[2016-10-22 01:30] VITALS: BP 142/93; PULSE 111; RESP 16
[2016-10-22] MEDS: DOCUSATE SODIUM 50 MG/SENNA 8.6 MG TAB PO PRN ×2 (06:23→20:29)
[2016-10-22 08:05] VITALS: BP 123/87; PULSE 84; RESP 18; TEMP 98.1
--- NOTE | 2016-10-22 08:09 | HHI.OB ---
Subjective Post Day: 1 Remarks day # 1 AFVSS overnight. Decreased lochia. Denies dysuria. No breast tenderness. She is feeding the baby via breast. Appetite good. No nausea or vomiting. Ambulating well. Denies calf pain or shortness of breath. Otherwise, she is doing well this morning and has no other complaints. (Randall Aden MD R1) Remarks I rounded on the patient. I rounded with the resident. I reviewed the resident' s assessment and plan of care for this patient. I am in agreement with the plan of care for this patient. (Ashley Villatoro MD) Objective Objective Remarks GENERAL: Well-nourished, well-developed female in no apparent distress. CARDIOVASCULAR: Regular rate and rhythm without murmurs, gallops, or rubs. RESPIRATORY: Breath sounds equal bilaterally. No accessory muscle use. ABDOMEN/GI: Abdomen soft, non-tender. Fundus: Firm, non-tender at umbilicus. GENITOURINARY: Light to moderate bleeding. EXTREMITIES: No cyanosis or edema, non-tender, without signs of DVT. Medications and IVs Current Medications Medications (Trade) Dose Ordered Sig/Christa Route Start Time Stop Time Status Last Admin (Tylenol) 650 mg Q4H PRN PO 10/19/16 13:00 10/22/16 06:23 (Ambien) 5 mg HS PRN PO 10/19/16 21:00 Oxytocin 500 ml @ 0 mls/hr TITRATE IV 10/20/16 14:45 10/20/16 14:52 Fentanyl/ Bupivacaine HCl 100 ml @ 0 mls/hr TITRATE EPIDURAL 10/20/16 20:00 (NS Flush) 2 ml BID IV FLUSH 10/21/16 09:00 (NS Flush) 2 ml UNSCH PRN IV FLUSH 10/21/16 01:45 (Tylenol) 650 mg Q4H PRN PO 10/21/16 01:45 (Motrin) 600 mg Q6H PRN PO 10/21/16 01:45 10/22/16 06:23 (Percocet 5-325 Mg) 1 tab Q4H PRN PO 10/21/16 01:45 10/21/16 03:35 (Percocet 5-325 Mg) 2 tab Q4H PRN PO 10/21/16 01:45 (Americaine 20% Top Spr) 1 spray Q4H PRN TOPICAL 10/21/16 01:45 10/21/16 09:13 (Tucks Pads) 1 applic QID PRN TOPICAL 10/21/16 01:45 10/21/16 09:13 (Taina-Colace) 2 tab Q12H PRN PO 10/21/16 01:45 10/22/16 06:23 (Ambien) 5 mg HS PRN PO 10/21/16 01:45 (Mag-Al Plus Susp Liq) 15 ml Q8H PRN PO 10/21/16 01:45 (Zofran Odt) 4 mg Q6H PRN PO 10/21/16 01:45 (Randall Aden MD R1) Assessment/Plan Problem List: (1) Vaginal delivery ICD Codes: O80 - Encounter for full-term uncomplicated delivery Status: Acute (2) induced hypertension, delivered, current hospitalization ICD Codes: O13.4 - Gestational [-induced] hypertension without significant proteinuria, complicating childbirth Status: Acute Assessment and Plan 21 y/o female, now who is PPD# 1 s/p complicated by compound presentation Post- Care: -Continue routine care. -Motrin PRN pain. -Encouraged OOB. Advised pelvic rest for 6 wks. -Re: ctrl, she would like to avoid it given previous side effects. Non- hormonal options were discussed in detail with patient. Patient wished to follow up outpatient with her OB to further discuss. -Anticipate discharge today or tomorrow. -induced hypertension: BPs currently 110s to 140s SBP Ruled out preeclampsia: Notable only for mild anemia, platelets within normal limits. CMP unremarkable. Not requiring antihypertensives Would start magnesium per protocol if patient blood pressures become more elevated or she becomes symptomatic DW Dr. Jocelyne Stephenson (Randall Aden MD R1) Randall Aden MD R1 Oct 22, 2016 08:09 Ashley Villatoro MD Oct 22, 2016 08:40
[2016-10-22 20:00] VITALS: BP 161/99; PULSE 91; RESP 18; TEMP 98.3
[2016-10-22 20:45] VITALS: BP 145/89
[2016-10-23 03:22] VITALS: BP 143/95; PULSE 85
[2016-10-23] MEDS: IBUPROFEN 600 MG TAB PO PRN (03:27)
[2016-10-23] MEDS: ACETAMINOPHEN 325 MG TAB PO PRN (03:28)
--- NOTE | 2016-10-23 07:11 | HHI.OB ---
Subjective Post Day: 2 Remarks day # 2 no fever or acute events overnight. Decreased lochia. Denies dysuria. No breast tenderness. She is feeding the baby via breast. Appetite good. No nausea or vomiting. Ambulating well. Denies calf pain or shortness of breath. No headache, dizziness, weakness, changes in vision. Otherwise, she is doing well this morning and has no other complaints. Objective Vitals/I&O Vital Signs Date Time Temp Pulse Resp B/P (MAP) Pulse Ox O2 Delivery O2 Flow Rate FiO2 10/23/16 03:22 85 143/95 (111) 10/22/16 20:45 145/89 (107) 10/22/16 20:00 98.3 91 18 161/99 (119) 10/22/16 08:05 98.1 10/22/16 08:05 84 18 123/87 (99) Objective Remarks GENERAL: Well-nourished, well-developed female in no apparent distress. CARDIOVASCULAR: Regular rate and rhythm without murmurs, gallops, or rubs. RESPIRATORY: Breath sounds equal bilaterally. No accessory muscle use. ABDOMEN/GI: Abdomen soft, non-tender. Fundus: Firm, non-tender at umbilicus. GENITOURINARY: Light to moderate bleeding. EXTREMITIES: No cyanosis or edema, non-tender, without signs of DVT. Medications and IVs Current Medications Medications (Trade) Dose Ordered Sig/Christa Route Start Time Stop Time Status Last Admin (Tylenol) 650 mg Q4H PRN PO 10/19/16 13:00 10/23/16 03:28 (Ambien) 5 mg HS PRN PO 10/19/16 21:00 Oxytocin 500 ml @ 0 mls/hr TITRATE IV 10/20/16 14:45 10/20/16 14:52 Fentanyl/ Bupivacaine HCl 100 ml @ 0 mls/hr TITRATE EPIDURAL 10/20/16 20:00 (NS Flush) 2 ml BID IV FLUSH 10/21/16 09:00 (NS Flush) 2 ml UNSCH PRN IV FLUSH 10/21/16 01:45 (Tylenol) 650 mg Q4H PRN PO 10/21/16 01:45 (Motrin) 600 mg Q6H PRN PO 10/21/16 01:45 10/23/16 03:27 (Percocet 5-325 Mg) 1 tab Q4H PRN PO 10/21/16 01:45 10/21/16 03:35 (Percocet 5-325 Mg) 2 tab Q4H PRN PO 10/21/16 01:45 (Americaine 20% Top Spr) 1 spray Q4H PRN TOPICAL 10/21/16 01:45 10/21/16 09:13 (Tucks Pads) 1 applic QID PRN TOPICAL 10/21/16 01:45 10/21/16 09:13 (Taina-Colace) 2 tab Q12H PRN PO 10/21/16 01:45 10/22/16 20:29 (Ambien) 5 mg HS PRN PO 10/21/16 01:45 (Mag-Al Plus Susp Liq) 15 ml Q8H PRN PO 10/21/16 01:45 (Zofran Odt) 4 mg Q6H PRN PO 10/21/16 01:45 Assessment/Plan Problem List: (1) Vaginal delivery ICD Codes: O80 - Encounter for full-term uncomplicated delivery Status: Acute (2) induced hypertension, delivered, current hospitalization ICD Codes: O13.4 - Gestational [-induced] hypertension without significant proteinuria, complicating childbirth Status: Acute Assessment and Plan 21 y/o female, now who is PPD# 2 s/p complicated by compound presentation Post- Care: -Continue routine care. -Motrin PRN pain. -Encouraged OOB. Advised pelvic rest for 6 wks. -Re: ctrl, she would like to avoid it given previous side effects. Non- hormonal options were discussed in detail with patient. Patient wished to follow up outpatient with her OB to further discuss. -Anticipate discharge today or tomorrow. -induced hypertension: BPs currently 110s to 160s SBP Ruled out preeclampsia: Notable only for mild anemia, platelets within normal limits. CMP unremarkable. Started on Procardia [address] Boateng, Dr. Jocelyne Aden,Randall Hess MD R1 Oct 23, 2016 07:11
[2016-10-23 07:50] VITALS: BP 132/93; PULSE 91; RESP 16; TEMP 97.8
[2016-10-23] MEDS ORDERED: NIFE1TAB85 PO (07:56)
[2016-10-23] MEDS ORDERED: NIFEdipine 30 MG SUSTAINED RELEASE TAB PO ONE (08:00)
--- NOTE | 2016-10-23 09:51 | HHI.DCPOC ---
Discharge Care Plan Report Symptoms to Your Doctor -Temperature above 100.5 degrees -Redness, of incision or excessive or foul smelling drainage -Unusual pain or calf pain -Increased vaginal bleeding -Painful or difficulty urinating -Feelings of extreme sadness or anxiety after 2 weeks Goals to Promote Your Health * To prevent worsening of your condition and complications * To maintain your health at the optimal level Directions to Meet Your Goals Take your medications as prescribed Follow your dietary instruction Follow activity as directed Ensure plenty of rest for recovery Drink fluids for hydration Keep your appointments as scheduled Take your immunizations and boosters as scheduled If your symptoms worsen call your PCP, if no PCP go to Urgent Care Center or Emergency Room Smoking is Dangerous to Your Health. Avoid second hand smoke Call the 24-hour crisis hotline for domestic abuse at Randall Aden MD R1 Oct 23, 2016 09:51
[2016-10-23] MEDS ORDERED: OXYTOCIN 30 UNITS-500ML PREMIX 500 ML IV PRN (15:45)
== END 2016-10-23 15:37 | disposition home or self-care (01) | DRG 775 ==
LOC: HOBED 15:03 → H2EA 17:24 → H1EA 10-21 05:00 → UNDODISIN 10-23 15:06
PROVIDERS: ADMIT Obstetrics & Gynecology Obstetrics; ATTEND Obstetrics & Gynecology Obstetrics
PROC: 3E0P7GC Introduction of Other Therapeutic Substance into Female Reproductive, Via Natural or Artificial Opening (ICD-10-PCS; 2016-10-18)
PROC: 3E033VJ Introduction of Other Hormone into Peripheral Vein, Percutaneous Approach (ICD-10-PCS; 2016-10-18)
PROC: 10907ZC Drainage of Amniotic Fluid, Therapeutic from Products of Conception, Via Natural or Artificial Opening (ICD-10-PCS; 2016-10-19)
PROC: 10H07YZ Insertion of Other Device into Products of Conception, Via Natural or Artificial Opening (ICD-10-PCS; 2016-10-19)
PROC: 10E0XZZ Delivery of Products of Conception, External Approach (ICD-10-PCS; principal; 2016-10-21)
PROC: 0HQ9XZZ Repair Perineum Skin, External Approach (ICD-10-PCS; 2016-10-21)
DX: O13.4 Gestational [pregnancy-induced] hypertension without significant proteinuria, complicating childbirth (principal); D64.9 Anemia, unspecified; O48.0 Post-term pregnancy; O32.6XX0 Maternal care for compound presentation, not applicable or unspecified; O70.0 First degree perineal laceration during delivery; Z37.0 Single live birth; Z3A.40 40 weeks gestation of pregnancy; O99.02 Anemia complicating childbirth
CPT/HCPCS: 36415; 59025; 76937; 80053; 81001; 85027; 86900; 86901; 87086; 90715; J2210; J2590; J3010; J7120

== ENCOUNTER 2017-03-28 17:52 | Emergency (ER) | payer OTHER ==
[~2017-03-28] VITALS: Ht 162.6 cm; Wt 70.0 kg
[~2017-03-28 17:52] MED LIST changes: +NIFE1TAB85 PO
[2017-03-28 17:53] VITALS: BP 131/82; PULSE 140; RESP 18; TEMP 100.2; O2SAT 98
[2017-03-28] MEDS ORDERED: RESP: ALBUTEROL 2.5 MG/3 ML NEB (SCH) NEB ONE (19:00)
[2017-03-28 19:02] VITALS: PULSE 123
[2017-03-28 19:44] VITALS: BP 135/79; PULSE 118; RESP 17; TEMP 98.7; O2SAT 99
--- NOTE | 2017-03-28 20:11 | PD ---
HPI Chief Complaint: Cold / Flu Symptoms Time Seen by Provider: 19:46 Travel History International Travel<30 days: No Contact w/Intl Traveler<30days: No Traveled to known affect area: No History of Present Illness HPI 21-year-old 2 para 1 with a ten-week presents emergency department with flu symptoms for the last 3-4 days. She states that she has had some subjective fever and chills, headache, sore throat, cough, shortness of breath, wheezing, nausea, diarrhea and general malaise. She denies any abdominal pain. No dysuria or frequency. No vaginal bleeding or leakage of fluid. Symptoms are moderate. She did not to the flu shot this year. She has not had any care yet. Patient was given an albuterol treatment in the triage area. 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 Hx Anticoagulant Therapy: No Cardiovascular Problems: No Chemotherapy: No Cerebrovascular Accident: No Diabetes: No Diminished Hearing: No Respiratory: No Immunizations Current: Yes Influenza Vaccination: No ?: LMP: UNKNOWN : 2 Para: 1 Past Surgical History Genitourinary Surgery: Yes (LEFT CHASE URETER REPAIR ) Hysterectomy: No Social History Alcohol Use: No Tobacco Use: No Substance Use: No Allergies-Medications (Allergen,Severity, Reaction): Coded Allergies: No Known Allergies (Verified Adverse Reaction, Unknown, 03/28/17) Reported Meds & Prescriptions Reported Meds & Active Scripts Active Proventil Hfa 6.7 GM Inh (Albuterol Sulfate) 90 Mcg/Act Aer 2 Puff INH Q4-6H PRN Vitafol Gummies 3.33-0.333-34.8 mg ( Vit W/ Ferric Phospha) 1 Chw Chw 3 Tab PO DAILY Review of Systems Except as stated in HPI: all other systems reviewed are Neg Physical Exam Narrative GENERAL: Well-developed, well-nourished in no apparent distress. Nontoxic appearing. HEAD: Normocephalic, atraumatic. EYES: Pupils equal round and reactive. Extraocular motions intact. No scleral icterus. No injection or drainage. ENT: Nose clear. Throat without erythema, tonsillar hypertrophy or exudate. Uvula midline. Airway patent. NECK: Trachea midline. Supple, nontender, moves head freely. No central bony tenderness or spasm. CARDIOVASCULAR: Regular rate and rhythm without murmurs, gallops, or rubs. RESPIRATORY: Clear to auscultation. Breath sounds equal bilaterally. No wheezes , rales, or rhonchi. GASTROINTESTINAL: Abdomen soft, non-tender, nondistended. No hepato-splenomegaly , or palpable masses. No guarding. EXTREMITIES: No clubbing, cyanosis, or edema. No joint tenderness. BACK: Nontender without deformity. No flank tenderness. NEUROLOGICAL: Awake, alert and oriented x 3 .Cranial nerves grossly intact. Motor and sensory grossly within normal limits. Normal speech. Data Data Last Documented VS Vital Signs Date Time Temp Pulse Resp B/P (MAP) Pulse Ox O2 Delivery O2 Flow Rate FiO2 03/28/17 19:44 98.7 118 17 135/79 (97) 99 Room Air Orders Orders Albuterol Neb (Albuterol Neb) (03/28/17 19:00) Influenzae A/B Antigen (03/28/17 19:46) MDM Medical Decision Making Medical Screen Exam Complete: Yes Emergency Medical Condition: Yes Medical Record Reviewed: Yes Interpretation(s) Influenza: Negative Differential Diagnosis MDM: High Differential diagnoses: Pneumonia, bronchitis, URI, asthma, RAD, legionnaire's disease, SARS, ARDS, influenza, bronchiolitis, RSV,PE,CHF Narrative Course Patient was given albuterol treatment in triage. She is feeling much better. Her lungs are clear now. We will obtain a flu swab. Patient's symptoms and exam is more consistent with a viral URI. Patient's influenza is negative. She'll be given a prescription for albuterol and discharged home. This is a viral URI. Diagnosis Primary Impression: Viral URI with cough Patient Instructions: General Instructions Additional Instructions: Rest. Increase fluids. Tylenol for any fever or pain. Albuterol. Followup with your Dr. in one week. Return to the ER for any problems. Med/Other Pt SpecificInfo: Prescription(s) given Scripts Albuterol 6.7 GM Inh (Proventil Hfa 6.7 GM Inh) 90 Mcg/Act Aer 2 PUFF INH Q4-6H Y for SHORTNESS OF BREATH, #1 INHALER 0 Refills Prov: Tino Membreno MD 03/28/17 Disposition: DISCHARGE HOME Condition: Stable Keanu Nguyen PA Mar 28, 2017 20:11
[2017-03-28] MEDS ORDERED: ALBU6.7H INH (21:27)
== END 2017-03-28 22:30 | disposition home or self-care (01) ==
LOC: NEPK 17:52 → NEPD 22:30
DX: O98.811 Other maternal infectious and parasitic diseases complicating pregnancy, first trimester (principal); J06.9 Acute upper respiratory infection, unspecified; R05 Cough; Z3A.10 10 weeks gestation of pregnancy; Z79.899 Other long term (current) drug therapy
CPT/HCPCS: 87804; 94664; 99283; J7613

== ENCOUNTER 2017-08-27 21:33 | Emergency (ER) | payer OTHER ==
[~2017-08-27 21:33] MED LIST changes: +ALBU6.7H INH; -NIFE1TAB85 PO
--- NOTE | 2017-08-27 22:46 | PD ---
HPI Chief Complaint headache Date Seen: Aug 27, 2017 Time Seen: 22:15 Travel History International Travel<30 Days: No Contact w/Intl Traveler<30Days: No Known Affected Area: No History of Present Illness HPI 22 yo presents at 32 wks c/o TORRE all day. she tried tylenol without relief. pt also had nausea and vomiting. +FM, denies vaginal bleeding. c/o contractions also. also pt c/o intermittent heart racing and feeling winded. denies SOB/CP currently. hx of preeclampsia with prior . History Past Medical History Medical History: Denies Significant Hx Obstetric History Obstetric History X 1 Past Surgical History Narrative Surgical left ureteral surgery Family History Narrative Family History DM Social History Alcohol Use: No Tobacco Use: No Substance Abuse: No Allergies-Medications (Allergen,Severity, Reaction): Coded Allergies: No Known Allergies (Verified Adverse Reaction, Unknown, 03/28/17) Home Meds Active Scripts Albuterol 6.7 GM Inh (Proventil Hfa 6.7 GM Inh) 90 Mcg/Act Aer, 2 PUFF INH Q4- 6H Y for SHORTNESS OF BREATH, #1 INHALER 0 Refills Prov:Tino Membreno MD 03/28/17 Vit W/ Ferric Phospha (Vitafol Gummies 3.33-0.333-34.8 mg) 1 Chw Chw, 3 TAB PO DAILY, #90 BOTTLE 11 Refills Prov:Raquel Tadeo 08/08/16 Review of Systems Except as stated in HPI: all other systems reviewed are Neg Physical Exam AFVSS Narrative GENERAL: Well-nourished, well-developed patient. SKIN: Warm and dry. HEAD: Normocephalic and atraumatic. EYES: No scleral icterus. No injection or drainage. ENT: No nasal drainage noted. Mucous membranes pink. Airway patent. NECK: Supple, trachea midline. No JVD. CARDIOVASCULAR: Regular rate and rhythm without murmurs, gallops, or rubs. RESPIRATORY: Breath sounds equal bilaterally. No accessory muscle use. BREASTS: Bilateral exam showed no masses , no retractions, no nipple discharge. ABDOMEN/GI: Abdomen soft, non-tender, bowel sounds present, no rebound, no guarding Gravid GENITOURINARY: External Genitalia: intact and normal in appearance BUS glands: [-] Cervix: [-] cl/th Membranes: [intact] Uterine Contractions: [-] rare FHT's: Category: [-] 1 Baseline: [-] 140s Reactive: [-] yes Variability: [-] mod Decels: [-] rare EXTREMITIES: No cyanosis or edema. BACK: Nontender without obvious deformity. No CVA tenderness. NEUROLOGICAL: Awake and alert. Motor and sensory grossly within normal limits. Five out of 5 muscle strength in all muscle groups. Normal speech. Data Data Vital Signs Reviewed: Yes MDM Medical Record Reviewed: Yes Interpretation(s) IUP @ 32 wks ctx Headache Plan UA FFN trial fioricet Diagnosis Diagnosis: Primary Impression: Headache Additional Impressions: contractions Disposition: 01 DISCHARGE HOME Condition: Stable Destiny Maier MD Aug 27, 2017 22:46
[2017-08-27] MEDS ORDERED: ACETAMIN 325 MG/BUTALBITAL 50 MG/CAFFEINE 40 MG TAB PO ONE (23:00)
[2017-08-27 23:03] LABS: BACTERIA, URINE MOD /hpf; BILIRUBIN, URINE NEG (NEG); BLOOD, URINE NEG (NEG); GLUCOSE,URINE NEG (NEG); KETONE, URINE NEG (NEG); MUCUS URINE FEW /lpf (OCC); NITRITE,URINE NEG (NEG); SQUAMOUS EPITHELIAL CELL URINE 3 /hpf (0-5); URINE COLOR YELLOW (YELLW/STRAW); URINE LEUKOCYTE ESTERASE SMALL (NEG)
[2017-08-27 23:28] VITALS: RESP 18
== END 2017-08-27 23:32 | disposition home or self-care (01) ==
LOC: HOBED 21:33
DX: O26.893 Other specified pregnancy related conditions, third trimester (principal); R51 Headache; R82.99 Other abnormal findings in urine; O62.9 Abnormality of forces of labor, unspecified; Z3A.32 32 weeks gestation of pregnancy
CPT/HCPCS: 81001; 82731; 87086; 99283

== ENCOUNTER 2017-10-24 13:25 | Inpatient (IN) ==
[2017-10-24 15:37] LABS: Bacteria,Urine Many /hpf; Bilirubin,Urine Negative (Negative); Clarity,Urine Turbid (Clear); Color,Urine Yellow (Yellw/Straw); Glucose,Urine (UA) Negative (Negative); Leukocyte Esterase,Urine Large (Negative); Nitrite,Urine Negative (Negative); Specific Gravity,Urine 1.006 (1.002-1.035); Squamous Epithelial Cell,Urine 38 /hpf (0-5)
[2017-10-24] MEDS ORDERED: fentaNYL Citrate Inj 100 MCG/2 ML Ampul IV.PUSH PRN ×2 (16:03)
[2017-10-24] MEDS ORDERED: Sod Chloride 0.9% Inj 1,000 ML IV.CONT PRN (16:03)
[2017-10-24] MEDS ORDERED: Sodium Chlor 0.9% Inj 500 ML IV.SIG PRN (16:03)
[2017-10-24] MEDS ORDERED: Oxytocin 30 Units/500ml Premix 30 UNITS/500 ML BAG IV.SIG ONE (16:03)
[2017-10-24] MEDS ORDERED: Naloxone Inj 0.4 MG/ML Vial IV.PUSH PRN (16:03)
[2017-10-24] MEDS ORDERED: Oxytocin 30 Units/500ml Premix 30 UNITS/500 ML BAG IV.SIG PRN (16:05)
[2017-10-24] MEDS ORDERED: Citric Acid/Sodium Citrate Liq 30 ML UDC PO SCH (16:15)
[2017-10-24 16:37] LABS: Baso % (Auto) 0.5 % (0.0-2.0); Eos # (Auto) 0.1 th/mm3 (0.0-0.4); Eos % (Auto) 1.2 % (0.0-4.0); Hematocrit 30.7 % (35.0-46.0); Hemoglobin 9.8 gm/dL (11.6-15.3); Lymph # (Auto) 3.2 th/mm3 (1.0-4.8); Lymph % (Auto) 33.5 % (9.0-44.0); Mean Corpuscular Hemoglobin 24.4 pg (27.0-34.0); Mean Corpuscular Volume 76.4 fL (80.0-100.0); Mean Platelet Volume 11.2 fL (7.0-11.0); Mono # (Auto) 0.7 th/mm3 (0.0-0.9); Neut # (Auto) 5.6 th/mm3 (1.8-7.7); Neut % (Auto) 57.8 % (16.0-70.0); Platelet Count 146 th/mm3 (150-450); Red Blood Count 4.02 mil/mm3 (4.00-5.30); Red Cell Distribution Width 16.6 % (11.6-17.2); White Blood Count 9.6 th/mm3 (4.0-11.0)
[2017-10-24] MEDS ORDERED: Aluminum/Magnesium/Simethacone Susp 30 ML UDC PO ONE (19:00)
--- NOTE | 2017-10-24 19:28 | P.OBLABOR ---
Subjective Interval history: Called by RN for difficulty differentiating /maternal heart rate. Request made for FSE placement. Objective Vital Signs: Vital Signs - 8 hr 10/24/17 13:56 10/24/17 13:57 10/24/17 15:58 Temperature 98.9 F 98.7 F Pulse Rate 143 H 144 H Respiratory Rate 18 Blood Pressure 134/83 130/79 10/24/17 15:59 10/24/17 16:30 10/24/17 16:35 Temperature Pulse Rate 117 H 111 H Respiratory Rate 16 Blood Pressure 128/82 10/24/17 16:40 10/24/17 17:25 10/24/17 17:35 Temperature Pulse Rate 113 H 104 H 109 H Respiratory Rate Blood Pressure 107/61 119/52 L 10/24/17 17:40 10/24/17 17:46 10/24/17 18:35 Temperature Pulse Rate 105 H 113 H 109 H Respiratory Rate 18 Blood Pressure 137/80 133/86 134/74 Objective: Pelvic Exam: 4-5/70/-3 FHT's: cat 1 Artificial Rupture of Membrane: Yes (clear fluid, FSE placed) Assessment and Plan - Plan 22y/o induced for variables and postdates. -- FHTs cat 1 -- AROM clear -- pit @ 10 -- continue IOL
--- NOTE | 2017-10-24 19:29 | P.HPOB ---
Patient Name: Marlene Carmona Date of : [birth year] Patient Status: Inpatient Attending Provider: Fiona Pacheco V Date: 10/24/17 14:33 Initialization Date: 10/24/17 14:33 History of Present Illness Primary Care Physician: No Primary Care Physician History of Present Illness: This patient is a F at 40 weeks and 5 days gestation who presents to the OB ED after leakage of clear non-malodorous fluid this morning. Patient was previously seen in the ED on 10/14/17 in which she was found to have UTI and prescribed Keflex. Per patient's , the patient took a few doses of Keflex and discontinued the course of antibiotics. Patient reports that 1230 of this afternoon the patient was in bed and began to laugh at which point she felt a gush of fluid. This leakage continued for another 20-30 minutes. She describes the fluid as clear nonbloody and non-malodorous. Patient has not felt any further leakage of fluid since then. Patient denies any recent vomiting , diarrhea, chest pain, shortness of breath, fevers, chills, dizziness, or changes in vision but admits to chronic constipation with last BM yesterday. Qc Analyst Hx: 1 prior vaginal . Induced at 40 weeks and 4 days due to gestational HTN. PMH: Gestational HTN Surgical history: Hydronephrosis as a child that was treated with stent and drainage Family Hx: Both parents suffer from HTN Social Hx: Denies any alcohol, tobacco, or drug abuse during . Allergies: Macrobid give the patient nausea Review of Systems Constitutional: Denies chills, Denies fatigue, Denies fever(s), Denies headache( s), Denies dizziness, Denies recent illness Eyes: Denies change in vision, Denies double vision, Denies blurry vision Cardiovascular: Denies chest pain, Denies fast heart rate, Denies rapid, pounding, or irregular heartbeat, Denies shortness of breath Respiratory: Denies shortness of breath or wheezing Gastrointestinal: Denies abdominal pain, Denies constipation, Denies loose stools, Denies nausea, Denies vomiting Genitourinary: Denies difficulty starting urination, Denies difficulty urinating , Denies painful urination, Denies urinary frequency, Denies pelvic pain, Denies urinary incontinence, Denies blood in urine OB: Endorses positive movement, endorses clear and non-malodorous vaginal discharge PMFSH - Surgical History Surgical History: Surgical History (Last Updated 09/29/17 @ 16:38 by Antonino Steward MD) History of kidney surgery - Tobacco History Smoking Status: Never smoker Medications and Allergies Allergies Allergy/AdvReac Type Severity Reaction Status Date / Time No Known Allergies Allergy Verified 10/04/17 23:30 Home Medications Medication Instructions Recorded Confirmed Type PNV cmb#95-ferrous fumarate-FA 1 tab PO DAILY 09/29/17 10/14/17 History [] Exam Vital signs: Vital Signs 10/24/17 13:56 10/24/17 13:57 Temperature 98.9 F Pulse Rate 143 H 144 H Respiratory Rate 18 Blood Pressure 134/83 130/79 Narrative: GENERAL: Well-nourished, well-developed patient. SKIN: Warm and dry. HEAD: Normocephalic and atraumatic. EYES: No scleral icterus. No injection or drainage. CARDIOVASCULAR: Regular rate and rhythm without murmurs, gallops, or rubs. RESPIRATORY: Breath sounds equal bilaterally. No accessory muscle use. ABDOMEN/GI: Gravid, abdomen soft, non-tender, bowel sounds present, no rebound, no guarding Gravid to 40 weeks size GENITOURINARY: External Genitalia: intact and normal in appearance Cervix: Soft and posterior Dilatation: 2-3 Effacement: 70% Station: -2 FHT's: Category: 2 Baseline: 130s Reactive: Yes Variability: Moderate Decels: Multiple variable decelerations EXTREMITIES: No cyanosis or edema. BACK: Nontender without obvious deformity. No CVA tenderness. NEUROLOGICAL: Awake and alert. Moves all extremities without difficulty. Normal speech. Results - Labs CBC & Chem 7: 10/24/17 15:30 Assessment and Plan - Plan This patient is a F at 40 weeks and 5 days gestation who presents to the OB ED after leakage of clear non-malodorous fluid this morning. Due to patient' s gestational age active labor must be ruled out, amnio sure negative. Vaginal exam revealed dilation of 2-3 cm with 70% effacement and -2 station. Possibility of vaginal fluid being the urine cannot be ruled out in the setting of fluid release during laughter and in the setting of an untreated UTI. - Rocephin 1g X1 for untreated UTI Discharge Plan - Physicians Team Primary Care Provider: Primary Care Madelyn Carrillo Attending Provider: Fiona Pacheco V
[2017-10-24 19:55] LABS: Amphetamine Urine With Conf Neg (Neg); Benzodiazepine Urine With Conf Neg (Neg)
[2017-10-24] MEDS ORDERED: fentaNYL 2MCG-Bupiv 0.125% Epi 150 ML EPIDURAL ONE (20:18)
[2017-10-24] MEDS ORDERED: fentaNYL Citrate Inj 100 MCG/2 ML Ampul EPIDURAL ONE (21:36)
[2017-10-24] MEDS ORDERED: fentaNYL 2MCG-Bupiv 0.125% Epi 150 ML EPIDURAL PRN (21:36)
[2017-10-25] MEDS ORDERED: Lidocaine 1% Inj 50 ML Vial ONE (01:37)
[2017-10-25] MEDS ORDERED: Lidocaine 2%/Epinephrine 1:200,000 PF 10 ML SDV ONE (03:19)
[2017-10-25] MEDS ORDERED: Bupivacaine PF 0.25% Inj 10 ML Vial ONE (03:19)
[2017-10-25] MEDS ORDERED: Bisacodyl 10 MG Supp RECTAL PRN (04:52)
[2017-10-25] MEDS ORDERED: Witch Hazel 50%/Glyderin 12.5% 40 Pad Jar RECTAL PRN (04:52)
[2017-10-25] MEDS ORDERED: Oxytocin 30 Units/500ml Premix 30 UNITS/500 ML BAG IV.CONT PRN (04:52)
[2017-10-25] MEDS ORDERED: Benzocaine 20% Top Spray 60 ML Can TOPICAL PRN (04:52)
[2017-10-25] MEDS ORDERED: Zolpidem Tartrate 5 MG Tablet PO PRN (04:52)
[2017-10-25] MEDS ORDERED: Naloxone Inj 0.4 MG/ML Vial IV.PUSH PRN (04:52)
--- NOTE | 2017-10-25 04:56 | P.OBGPN ---
CTSP by RN 2' to variables. Amnioinfusion initiated and pitocin d/c'd. Deep variables with ctx, improving. Cvx anterior lip. Mom with nausea/vomiting and increasing tachycardia/tremors. O2 sats 98% on RA. Pt asx. STAT EKG ordered to r/o SVT. I stepped out of the room for another delivery and pt experienced bradycardia. Dr. Garcia was present and stepped into room. Pt quickly became complete and pushing initiated. Dr. Garcia performed delivery. Plz see delivery note for full details. EKG pending.
--- NOTE | 2017-10-25 04:58 | P.OBDELI ---
Weeks Gestation: 41 Anesthesia: Epidural Episiotomy: none Vaginal Delivery: Vacuum Presentation: Occiput posterior Nuchal Cord: x1 Delayed Cord Clamping (45 sec): No (baby passed off after 10 seconds and cord gas obtained) Placenta: Spontaneous delivery, Intact, 3 vessel cord Laceration: 1 deg Repair: Chromic running Estimated blood loss (mL): 200 : Female (vacuum assisted delivery with late rotation to GILBERTO and sustained bradycardia due to rapid descent. team present for resuscitation and apgars 4 and 8 and weight pending. cord gas pending), Single (wroley in a concurrent delivery)
[2017-10-25] MEDS: Prenatal Vit/Ca/Iron/Folic Acid Tablet PO SCH (09:42)
[2017-10-25] MEDS: Senna/Docusate Sodium 8.6/50 MG Tablet PO SCH ×2 (09:42→21:51)
[2017-10-25] MEDS: Ferrous Sulfate 325 MG Tablet PO SCH (09:43)
[2017-10-25] MEDS: Acetaminophen 325 MG Tablet PO PRN ×2 (12:40→17:39)
[2017-10-25] MEDS ORDERED: Diphtheria/Tetanus/Pertussis Vaccine Inj 0.5 ML Syringe IM ONE (16:00)
[2017-10-25] MEDS ORDERED: Varicella Vaccine Live 1350 UNITS/0.5 ML Vial SQ ONE (16:00)
[2017-10-25] MEDS ORDERED: Rho Immune Globulin Inj 1,500 UNIT/1.3 ML Vial IM ONE (16:00)
[2017-10-25] MEDS ORDERED: Measles/Mumps/Rubella Vaccine Inj 0.5 ML Vial SQ ONE (16:00)
--- NOTE | 2017-10-26 08:54 | P.PNOB ---
Subjective Interval history: day #1 AFVSS overnight. Decreased lochia. Denies dysuria. No breast pain. Appetite good. No nausea or vomiting. Ambulating well. Denies calf pain or shortness of breath. Otherwise, she is doing well this morning and has no other complaints. Objective Vital Signs/I&O: Vital Signs 10/25/17 20:00 Temperature 98.1 F Pulse Rate 87 Respiratory Rate 18 Blood Pressure 117/70 Result Diagrams: 10/24/17 15:30 Objective Remarks: GENERAL: Well-nourished, well-developed patient. CARDIOVASCULAR: Regular rate and rhythm without murmurs, gallops, or rubs. RESPIRATORY: Breath sounds equal bilaterally. No accessory muscle use. ABDOMEN/GI: Abdomen soft, non-tender. Fundus: Firm, non-tender at umbilicus. GENITOURINARY: Light to moderate bleeding. EXTREMITIES: No cyanosis or edema, non-tender, without signs of DVT. Medications and IVs: Active Medications Acetaminophen (Tylenol) 650 mg PO Q4H PRN PRN Reason: PAIN SCALE 1 TO 2 Last Admin: 10/25/17 17:39 Dose: 650 mg Al Hydroxide/Mg Hydroxide (Milk Of Magnesia Liq) 30 ml PO Q12H PRN PRN Reason: Mild Constipation Benzocaine (Americaine 20% Top [place]) 1 spray TOPICAL Q4H PRN PRN Reason: For Perineum Discomfort Last Admin: 10/25/17 09:42 Dose: 1 spray Bisacodyl (Dulcolax Supp) 10 mg RECTAL DAILY PRN PRN Reason: SEVERE CONSITIPATION Ferrous Sulfate (Ferosul) 325 mg PO DAILY RIP Last Admin: 10/25/17 09:43 Dose: 325 mg Oxytocin (Pitocin 30 Units/Ns 500 Ml Premix) 30 units in 500 mls @ 100 mls/hr IV.CONT UNSCH PRN PRN Reason: Heavy bleeding Ibuprofen (Motrin) 800 mg PO Q8H PRN PRN Reason: For Cramping Last Admin: 10/25/17 21:51 Dose: 800 mg Lactulose (Lactulose Liq) 30 ml PO DAILY PRN PRN Reason: SEVERE CONSITIPATION Naloxone HCl (Narcan Inj) 0.1 mg IV.PUSH Q2M PRN PRN Reason: for opiate reversal Ondansetron HCl (Zofran Odt) 4 mg PO Q6H PRN PRN Reason: NAUSEA OR VOMITING Vit/Calcium/Iron/Folic Ac (Stuartnatal Plus 3) 1 tab PO DAILY [facility] Last Admin: 10/25/17 09:42 Dose: 1 tab Senna/Docusate Sodium (Taina-Colace) 1 tab PO BID [facility] Last Admin: 10/25/17 21:51 Dose: 1 tab Sennosides (Senokot) 17.2 mg PO Q12H PRN PRN Reason: Moderate Constipation Sodium Chloride (Ns Flush) 2 ml IV.FLUSH BID [facility] Last Admin: 10/25/17 09:00 Dose: 2 ml Sodium Chloride (Ns Flush) 2 ml IV.FLUSH PRN PRN PRN Reason: FLUSH AFTER USING IV ACCESS Witch Isabella/Glycerin (Tucks Pads) 1 applicatio RECTAL QID PRN PRN Reason: HEMORRHOIDS Last Admin: 10/25/17 09:42 Dose: 1 applicatio Zolpidem Tartrate (Ambien) 5 mg PO HS PRN PRN Reason: SLEEP Assessment and Plan - Plan 22y/o female who is PPD#1 s/p vaginal delivery. -Continue routine care. -Motrin PRN pain. -Encouraged OOB. Advised pelvic rest for 6 wks. -Re: ctrl, she would like to follow-up outpatient OB. -D/c likely today or tomorrow. wdw Dr. Steward - Attending Attestation The exam, history, and the medical decision-making described in the above note were completed with the assistance of the resident physician. I reviewed and agree with the findings presented. I attest that I had a [id number] encounter with the patient on the same day, and personally performed and documented my assessment and findings in the medical record.
[2017-10-26] MEDS: Ferrous Sulfate 325 MG Tablet PO SCH (09:14)
[2017-10-26] MEDS: Prenatal Vit/Ca/Iron/Folic Acid Tablet PO SCH (09:14)
[2017-10-26] MEDS: Senna/Docusate Sodium 8.6/50 MG Tablet PO SCH ×2 (09:14→21:49)
--- NOTE | 2017-10-26 17:28 | ECG ---
Date Performed: 10/25/2017 Time Performed: 06:25:45 PTAGE: 22 years EKG: SINUS TACHYCARDIA ABNORMAL RHYTHM ECG NO PREVIOUS TRACING DOCTOR: Stephania Sebastian Interpretating Date/Time 10/26/2017 17:26:24
[2017-10-27] MEDS: Prenatal Vit/Ca/Iron/Folic Acid Tablet PO SCH (08:19)
[2017-10-27] MEDS: Senna/Docusate Sodium 8.6/50 MG Tablet PO SCH (08:19)
[2017-10-27] MEDS: Ferrous Sulfate 325 MG Tablet PO SCH (08:19)
--- NOTE | 2017-10-27 10:03 | P.PNOB ---
Subjective Post day: 2 Interval history: Patient is a 22-year-old delivered at 40 weeks and 6 days. Patient is day 2 after . Patient's pain is well-controlled. Patient reports minimal bleeding. Patient reports eating and drinking without any nausea or vomiting. Patient has passed gas and has had a bowel movement. Patient denies chest pain and shortness of breath. Patient has been ambulating; she denies lower extremity pain. Patient reports desire for contraception, which she will discuss with her PCP at her first follow-up visit. Patient has decided to breast and formula-feed. Objective Vital Signs/I&O: Vital Signs 10/26/17 20:00 10/27/17 08:16 Temperature 98.2 F 98.2 F Pulse Rate 90 90 Respiratory Rate 17 16 Blood Pressure 146/74 H 123/82 Result Diagrams: 10/24/17 15:30 Objective Remarks: GENERAL: Well-nourished, well-developed patient. CARDIOVASCULAR: Regular rate and rhythm without murmurs, gallops, or rubs. RESPIRATORY: Breath sounds equal bilaterally. No accessory muscle use. ABDOMEN/GI: Abdomen soft, non-tender. Fundus: Firm, non-tender at umbilicus. GENITOURINARY: Light to moderate bleeding. EXTREMITIES: No cyanosis or edema, non-tender, without signs of DVT. Medications and IVs: Active Medications Acetaminophen (Tylenol) 650 mg PO Q4H PRN PRN Reason: PAIN SCALE 1 TO 2 Last Admin: 10/25/17 17:39 Dose: 650 mg Al Hydroxide/Mg Hydroxide (Milk Of Magnesia Liq) 30 ml PO Q12H PRN PRN Reason: Mild Constipation Benzocaine (Americaine 20% Top [place]) 1 spray TOPICAL Q4H PRN PRN Reason: For Perineum Discomfort Last Admin: 10/25/17 09:42 Dose: 1 spray Bisacodyl (Dulcolax Supp) 10 mg RECTAL DAILY PRN PRN Reason: SEVERE CONSITIPATION Ferrous Sulfate (Ferosul) 325 mg PO DAILY RIP Last Admin: 10/27/17 08:19 Dose: 325 mg Oxytocin (Pitocin 30 Units/Ns 500 Ml Premix) 30 units in 500 mls @ 100 mls/hr IV.CONT UNSCH PRN PRN Reason: Heavy bleeding Ibuprofen (Motrin) 800 mg PO Q8H PRN PRN Reason: For Cramping Last Admin: 10/27/17 08:20 Dose: 800 mg Lactulose (Lactulose Liq) 30 ml PO DAILY PRN PRN Reason: SEVERE CONSITIPATION Naloxone HCl (Narcan Inj) 0.1 mg IV.PUSH Q2M PRN PRN Reason: for opiate reversal Ondansetron HCl (Zofran Odt) 4 mg PO Q6H PRN PRN Reason: NAUSEA OR VOMITING Vit/Calcium/Iron/Folic Ac (Stuartnatal Plus 3) 1 tab PO DAILY [facility] Last Admin: 10/27/17 08:19 Dose: 1 tab Senna/Docusate Sodium (Taina-Colace) 1 tab PO BID [facility] Last Admin: 10/27/17 08:19 Dose: 1 tab Sennosides (Senokot) 17.2 mg PO Q12H PRN PRN Reason: Moderate Constipation Sodium Chloride (Ns Flush) 2 ml IV.FLUSH BID [facility] Last Admin: 10/26/17 23:43 Dose: Not Given Sodium Chloride (Ns Flush) 2 ml IV.FLUSH PRN PRN PRN Reason: FLUSH AFTER USING IV ACCESS Witch Isabella/Glycerin (Tucks Pads) 1 applicatio RECTAL QID PRN PRN Reason: HEMORRHOIDS Last Admin: 10/25/17 09:42 Dose: 1 applicatio Zolpidem Tartrate (Ambien) 5 mg PO HS PRN PRN Reason: SLEEP Assessment and Plan - Diagnosis (1) Vaginal delivery Code(s): O80 - Encounter for full-term uncomplicated delivery Status: Acute - Plan Patient is a 22-year-old delivered at 40 weeks and 6 days. Patient is day 2 after . Continue routine care. Motrin and Percocet when necessary for pain. Encourage OOB. Pelvic rest for 6 weeks will need follow-up appointment at that time. Contraception: To be discussed at follow-up visit. Anticipate discharge today. toan OB hospitalist - Attending Attestation The patient was seen and examined by me and I participated in all flor decision making. Continue routine care. Anticipate discharge home today. [facility]
== END 2017-10-27 14:56 | disposition home or self-care (01) ==
LOC: HOBED 13:25 → H2E 15:53 → H1EA 10-25 07:49
PROVIDERS: ADMIT Obstetrics & Gynecology; ATTEND Obstetrics & Gynecology